=== PATIENT | male | born 1945 | race Two or more races ===

== ENCOUNTER 2017-12-10 18:53 | Inpatient (IN) | payer SELFPAY ==
[2017-12-10 19:12] LABS: ADD MAN DIFF? NO
[2017-12-10 19:17] LABS: BASO # 0.1 x10^3/uL (0.0-0.2); BASO % 1 % (0-3); EOS # 0.2 x10^3/uL (0.0-0.7); EOS % 2 % (0-3); HEMATOCRIT 42.2 % (39.0-53.0); HEMOGLOBIN 14.4 g/dL (13.0-17.5); LYMPH # 2.4 x10^3/uL (1.0-4.8); LYMPH % 22 % (24-48); MEAN CORPUSCULAR HEMOGLOBIN 29 pg (25-35); MEAN CORPUSCULAR HGB CONC 34 g/dL (31-37); MEAN CORPUSCULAR VOLUME 84 fL (79-100); MONO # 0.9 x10^3/uL (0.0-1.1); MONO % 8 % (0-9); NEUT # 7.4 x10^3uL (1.8-7.7); NEUT % 67 % (31-73); PLATELET COUNT 217 x10^3/uL (140-400); RED BLOOD COUNT 5.03 x10^6/uL (4.30-5.70); RED CELL DISTRIBUTION WIDTH 13.8 % (11.5-14.5)
[2017-12-10 19:25] LABS: ANION GAP 10 (6-14); BLOOD UREA NITROGEN 15 mg/dL (8-26); BUN/CREATININE RATIO 21 (6-20); CALCIUM 8.7 mg/dL (8.5-10.1); CARBON DIOXIDE 28 mmol/L (21-32); CHLORIDE 98 mmol/L (98-107); CREATININE 0.7 mg/dL (0.7-1.3); GFR 110.9; GLUCOSE 125 mg/dL (70-99); SODIUM 136 mmol/L (136-145)
[2017-12-10] MEDS: ONDANSETRON PF 4 MG/2 ML VIAL. IV (19:30)
[2017-12-10 19:31] LABS: ALBUMIN 3.4 g/dL (3.4-5.0); ALBUMIN/GLOBULIN RATIO 0.9 (1.0-1.7); ALK PHOS 93 U/L (46-116); ALT (SGPT) 36 U/L (16-63); AST (SGOT) 18 U/L (15-37); TOTAL BILIRUBIN 0.1 mg/dL (0.2-1.0)
[2017-12-10] MEDS: NITROGLYCERIN OINT 1 GM PACKET. TP (19:31)
[2017-12-10 19:39] LABS: TROPONINI < 0.017 ng/mL (0.000-0.055)
[2017-12-10] MEDS ORDERED: ONDANSETRON PF 4 MG/2 ML VIAL. IV (20:00)
[2017-12-11 02:34] LABS: TROPONINI < 0.017 ng/mL (0.000-0.055)
[2017-12-11] MEDS: MORPHINE SULFATE 2 MG/ML DISP.SYRIN. IV (02:49)
[2017-12-11 08:46] LABS: TROPONINI < 0.017 ng/mL (0.000-0.055)
[2017-12-11] MEDS ORDERED: hydrALAZINE 20 MG/ML VIAL. IVP (09:45)
[2017-12-11] MEDS ORDERED: DOCUSATE SODIUM 100 MG CAPSULE. PO (09:45)
[2017-12-11] MEDS ORDERED: ASPIRIN 325 MG TABLET PO (10:00)
[2017-12-11] MEDS: ACETAMINOPHEN 325 MG TABLET. PO (10:04)
[2017-12-11] MEDS: hydroCHLOROthiazide 25 MG TABLET PO (11:46)
[2017-12-11] MEDS: CLOPIDOGREL BISULFATE 75 MG TABLET PO (11:46)
[2017-12-11] MEDS: METOPROLOL TART IMMED RELEASE 25 MG TABLET. PO ×2 (11:48→20:29)
[2017-12-11] MEDS: LISINOPRIL 20 MG TABLET PO (14:12)
[2017-12-11] MEDS: amLODIPine BESYLATE 10 MG TABLET PO (14:13)
[2017-12-11] MEDS: ENOXAPARIN 40 MG/0.4 ML SYRINGE. SQ (14:13)
[2017-12-11] MEDS: traMADol 50 MG TABLET PO (20:31)
[2017-12-11] MEDS ORDERED: ENALAPRIL MALEATE 20 MG PO (21:00)
[2017-12-12 04:43] LABS: ADD MAN DIFF? NO
[2017-12-12 05:02] LABS: BASO % 0 % (0-3); EOS # 0.1 x10^3/uL (0.0-0.7); EOS % 2 % (0-3); HEMATOCRIT 40.5 % (39.0-53.0); HEMOGLOBIN 13.7 g/dL (13.0-17.5); LYMPH # 2.4 x10^3/uL (1.0-4.8); LYMPH % 26 % (24-48); MEAN CORPUSCULAR HEMOGLOBIN 28 pg (25-35); MEAN CORPUSCULAR HGB CONC 34 g/dL (31-37); MEAN CORPUSCULAR VOLUME 83 fL (79-100); MONO # 0.7 x10^3/uL (0.0-1.1); MONO % 8 % (0-9); NEUT # 5.9 x10^3uL (1.8-7.7); NEUT % 64 % (31-73); PLATELET COUNT 193 x10^3/uL (140-400); RED BLOOD COUNT 4.87 x10^6/uL (4.30-5.70); RED CELL DISTRIBUTION WIDTH 13.7 % (11.5-14.5); WHITE BLOOD COUNT 9.2 x10^3/uL (4.0-11.0)
[2017-12-12 05:45] LABS: ANION GAP 8 (6-14); BLOOD UREA NITROGEN 21 mg/dL (8-26); CALCIUM 8.9 mg/dL (8.5-10.1); CARBON DIOXIDE 30 mmol/L (21-32); CHLORIDE 100 mmol/L (98-107); CREATININE 0.7 mg/dL (0.7-1.3); GFR 110.5; GLUCOSE 110 mg/dL (70-99); POTASSIUM 4.1 mmol/L (3.5-5.1); SODIUM 138 mmol/L (136-145)
[2017-12-12] MEDS: METOPROLOL TART IMMED RELEASE 25 MG TABLET. PO ×2 (09:00→20:54)
[2017-12-12] MEDS: REGADENOSON 0.4 MG/5 ML DISP.SYRIN. IV (10:24)
[2017-12-12] MEDS: ONDANSETRON PF 4 MG/2 ML VIAL. IV (11:30)
[2017-12-12 13:25] LABS: CHOLESTEROL 216 mg/dL (0-200); HDLC 45 mg/dL (40-60); LDLC 155 mg/dL (0-100); NON-HDL CHOLESTEROL 171 mg/dL (0-129); TRIGLYCERIDES 81 mg/dL (0-150); VLDLC 16 mg/dL (0-40)
[2017-12-12 13:41] LABS: CHOLESTEROL/HDL RATIO 4.8
[2017-12-12] MEDS: CLOPIDOGREL BISULFATE 75 MG TABLET PO (14:58)
[2017-12-12] MEDS: amLODIPine BESYLATE 10 MG TABLET PO (14:58)
[2017-12-12] MEDS: hydroCHLOROthiazide 25 MG TABLET PO (14:59)
[2017-12-12] MEDS: LISINOPRIL 20 MG TABLET PO (14:59)
[2017-12-12] MEDS: ASPIRIN ENTERIC COATED 81 MG TABLET.DR. PO (14:59)
[2017-12-12] MEDS: ENOXAPARIN 40 MG/0.4 ML SYRINGE. SQ (16:20)
[2017-12-13 03:52] LABS: ADD MAN DIFF? NO
[2017-12-13 03:55] LABS: BASO % 1 % (0-3); EOS # 0.2 x10^3/uL (0.0-0.7); EOS % 2 % (0-3); HEMATOCRIT 39.5 % (39.0-53.0); HEMOGLOBIN 13.2 g/dL (13.0-17.5); LYMPH # 2.4 x10^3/uL (1.0-4.8); LYMPH % 29 % (24-48); MEAN CORPUSCULAR HEMOGLOBIN 28 pg (25-35); MEAN CORPUSCULAR HGB CONC 33 g/dL (31-37); MEAN CORPUSCULAR VOLUME 84 fL (79-100); MONO # 0.6 x10^3/uL (0.0-1.1); MONO % 8 % (0-9); NEUT # 4.9 x10^3uL (1.8-7.7); NEUT % 60 % (31-73); PLATELET COUNT 187 x10^3/uL (140-400); RED BLOOD COUNT 4.73 x10^6/uL (4.30-5.70); RED CELL DISTRIBUTION WIDTH 13.7 % (11.5-14.5); WHITE BLOOD COUNT 8.2 x10^3/uL (4.0-11.0)
[2017-12-13 04:13] LABS: ANION GAP 7 (6-14); BLOOD UREA NITROGEN 19 mg/dL (8-26); CALCIUM 8.9 mg/dL (8.5-10.1); CARBON DIOXIDE 31 mmol/L (21-32); CHLORIDE 101 mmol/L (98-107); CREATININE 0.8 mg/dL (0.7-1.3); GFR 94.8; GLUCOSE 107 mg/dL (70-99); SODIUM 139 mmol/L (136-145)
[2017-12-13] MEDS: LISINOPRIL 20 MG TABLET PO (08:44)
[2017-12-13] MEDS: CLOPIDOGREL BISULFATE 75 MG TABLET PO (08:44)
[2017-12-13] MEDS: ASPIRIN ENTERIC COATED 81 MG TABLET.DR. PO (08:44)
[2017-12-13] MEDS: hydroCHLOROthiazide 25 MG TABLET PO (08:45)
[2017-12-13] MEDS: amLODIPine BESYLATE 10 MG TABLET PO (08:45)
[2017-12-13] MEDS: METOPROLOL TART IMMED RELEASE 25 MG TABLET. PO ×2 (08:45→20:24)
[2017-12-13] MEDS: ENOXAPARIN 40 MG/0.4 ML SYRINGE. SQ (14:00)
[2017-12-13] MEDS: IV 1/2 NORMAL SALINE 1,000 ML IV (18:40)
[2017-12-13] MEDS: ACETAMINOPHEN 325 MG TABLET. PO (20:24)
[2017-12-14] MEDS: ASPIRIN ENTERIC COATED 81 MG TABLET.DR. PO (08:00)
[2017-12-14] MEDS ORDERED: LIDOCAINE 1% Multi-Dose 20 ML VIAL. (08:33)
[2017-12-14] MEDS: hydroCHLOROthiazide 25 MG TABLET PO (08:33)
[2017-12-14] MEDS ORDERED: IODIXANOL 320 MG/ML 100 ML VIAL. ×2 (08:33→10:08)
[2017-12-14] MEDS: METOPROLOL TART IMMED RELEASE 25 MG TABLET. PO ×2 (08:34→21:49)
[2017-12-14] MEDS: LISINOPRIL 20 MG TABLET PO (08:34)
[2017-12-14] MEDS: CLOPIDOGREL BISULFATE 75 MG TABLET PO (08:34)
[2017-12-14] MEDS: amLODIPine BESYLATE 10 MG TABLET PO (08:34)
[2017-12-14] MEDS: MIDAZOLAM HCL/PF 2 MG/2 ML VIAL. IV (09:15)
[2017-12-14] MEDS ORDERED: CONTRAST GIVEN MC (09:15)
[2017-12-14] MEDS: IODIXANOL 320 MG/ML 100 ML VIAL. IART (09:15)
[2017-12-14] MEDS: LIDOCAINE 2% 20 ML VIAL. IJ (09:15)
[2017-12-14] MEDS: fentaNYL PF VIAL 100 MCG/2 ML VIAL IV (09:15)
[2017-12-14] MEDS: MORPHINE SULFATE 2 MG/ML DISP.SYRIN. IV (10:39)
[2017-12-14] MEDS ORDERED: ONDANSETRON PF 4 MG/2 ML VIAL. IV (11:15)
[2017-12-14] MEDS: IV 1/2 NORMAL SALINE 1,000 ML IV (11:20)
[2017-12-14] MEDS: ENOXAPARIN 40 MG/0.4 ML SYRINGE. SQ (14:00)
[2017-12-14] MEDS: ACETAMINOPHEN 325 MG TABLET. PO (21:50)
[2017-12-15] MEDS: IV 1/2 NORMAL SALINE 1,000 ML IV (04:00)
[2017-12-15] MEDS: ASPIRIN ENTERIC COATED 81 MG TABLET.DR. PO (08:23)
[2017-12-15] MEDS: hydroCHLOROthiazide 25 MG TABLET PO (08:23)
[2017-12-15] MEDS: amLODIPine BESYLATE 10 MG TABLET PO (08:23)
[2017-12-15] MEDS: LISINOPRIL 20 MG TABLET PO (08:23)
[2017-12-15] MEDS: CLOPIDOGREL BISULFATE 75 MG TABLET PO (08:23)
[2017-12-15] MEDS: METOPROLOL TART IMMED RELEASE 25 MG TABLET. PO (08:24)
[2017-12-18] MEDS ORDERED: CHOLECALCIFEROL (VITAMIN D3) 1,000 UNIT TABLET PO (10:00)
== END 2017-12-15 18:01 | disposition home or self-care (01) | DRG 287 ==
LOC: ER 18:53 → 2 NORTH 20:52
PROC: B2111ZZ Fluoroscopy of Multiple Coronary Arteries using Low Osmolar Contrast (ICD-10-PCS; principal; 2017-12-14)
PROC: B2151ZZ Fluoroscopy of Left Heart using Low Osmolar Contrast (ICD-10-PCS; 2017-12-14)
PROC: B2181ZZ Fluoroscopy of Left Internal Mammary Bypass Graft using Low Osmolar Contrast (ICD-10-PCS; 2017-12-14)
PROC: 4A023N7 Measurement of Cardiac Sampling and Pressure, Left Heart, Percutaneous Approach (ICD-10-PCS; 2017-12-14)
DX: I25.110 Atherosclerotic heart disease of native coronary artery with unstable angina pectoris (principal); I25.5 Ischemic cardiomyopathy; E11.9 Type 2 diabetes mellitus without complications; I10 Essential (primary) hypertension; Z82.49 Family history of ischemic heart disease and other diseases of the circulatory system; Z95.1 Presence of aortocoronary bypass graft; Z98.61 Coronary angioplasty status; I25.2 Old myocardial infarction
CPT/HCPCS: 36415; 71045; 75625; 78452; 80048; 80053; 80061; 84484; 85025; 93005; 93017; 93306; 93459; 93567; 96374; 96375; 96376; 99152; 99153; 99285; 99285-25; A9500; C1769; C1771; C1892; G0269; J1644; J1650; J2250; J2270; J2405; J2785; J3010

== ENCOUNTER 2018-04-26 17:39 | Inpatient (IN) | payer SELFPAY ==
[2018-04-26 18:48] LABS: ADD MAN DIFF? NO
[2018-04-26 18:56] LABS: BASO # 0.1 x10^3/uL (0.0-0.2); BASO % 1 % (0-3); EOS # 0.2 x10^3/uL (0.0-0.7); EOS % 2 % (0-3); HEMATOCRIT 42.2 % (39.0-53.0); HEMOGLOBIN 14.2 g/dL (13.0-17.5); LYMPH # 1.6 x10^3/uL (1.0-4.8); LYMPH % 22 % (24-48); MEAN CORPUSCULAR HEMOGLOBIN 28 pg (25-35); MEAN CORPUSCULAR HGB CONC 34 g/dL (31-37); MEAN CORPUSCULAR VOLUME 84 fL (79-100); MONO # 0.7 x10^3/uL (0.0-1.1); MONO % 9 % (0-9); NEUT # 4.7 x10^3uL (1.8-7.7); NEUT % 65 % (31-73); PLATELET COUNT 246 x10^3/uL (140-400); RED BLOOD COUNT 5.05 x10^6/uL (4.30-5.70); RED CELL DISTRIBUTION WIDTH 14.2 % (11.5-14.5); WHITE BLOOD COUNT 7.2 x10^3/uL (4.0-11.0)
[2018-04-26 19:08] LABS: ANION GAP 5 (6-14); BLOOD UREA NITROGEN 19 mg/dL (8-26); BUN/CREATININE RATIO 24 (6-20); CALCIUM 9.3 mg/dL (8.5-10.1); CARBON DIOXIDE 29 mmol/L (21-32); CHLORIDE 99 mmol/L (98-107); CREATININE 0.8 mg/dL (0.7-1.3); GFR 94.8; GLUCOSE 112 mg/dL (70-99); POTASSIUM 4.2 mmol/L (3.5-5.1); SODIUM 133 mmol/L (136-145)
[2018-04-26 19:14] LABS: ALBUMIN 3.2 g/dL (3.4-5.0); ALBUMIN/GLOBULIN RATIO 0.7 (1.0-1.7); ALK PHOS 89 U/L (46-116); ALT (SGPT) 32 U/L (16-63); AST (SGOT) 14 U/L (15-37); MAGNESIUM 1.9 mg/dL (1.8-2.4); TOTAL BILIRUBIN 0.2 mg/dL (0.2-1.0); TOTAL PROTEIN 7.9 g/dL (6.4-8.2)
[2018-04-26 19:15] LABS: TROPONINI < 0.017 ng/mL (0.000-0.055)
[2018-04-26 19:21] LABS: THYROID STIM HORMONE (TSH) 2.568 uIU/mL (0.358-3.74)
[2018-04-26 19:24] LABS: NT-PRO BNP 235 pg/mL (0-124)
[2018-04-26 19:24] LABS: CKMB MASS 0.9 ng/mL (0.0-3.6); CREATINE KINASE 25 U/L (39-308)
[2018-04-26 19:40] LABS: INR 1.1 (0.8-1.1)
[2018-04-26 20:50] LABS: POC GLUCOSE 107 mg/dL (70-99)
[2018-04-26] MEDS: IV NORMAL SALINE 1000ML BAG 1,000 ML IV (21:05)
[2018-04-26 21:18] LABS: BILIRUBIN,URINE NEGATIVE (NEG); CLARITY,URINE CLEAR; COLOR,URINE YELLOW; GLUCOSE,URINE NEGATIVE (NEG); NITRITE,URINE NEGATIVE (NEG); PH,URINE 6.5; PROTEIN,URINE NEGATIVE (NEG-TRACE)
[2018-04-26 21:23] LABS: BARBITURATES NEG (NEG); BENZODIAZEPINES NEG (NEG); CANNABINOIDS NEG (NEG); COCAINE NEG (NEG); METHADONE NEG (NEG); OPIATES POS (NEG); PHENCYCLIDINE NEG (NEG)
[2018-04-26 21:24] LABS: AMPHETAMINE/METHAMPHETAMINE NEG (NEG); ETHANOL, URINE NEG (NEG)
[2018-04-26 21:29] LABS: BACTERIA,URINE 0 /HPF (0-FEW); RBC,URINE 0 /HPF (0-2); SQUAMOUS EPITHELIAL CELL,UR OCC /LPF; WBC,URINE OCC /HPF (0-4)
[2018-04-26] MEDS ORDERED: ONDANSETRON PF 4 MG/2 ML VIAL. IV (21:30)
[2018-04-26 22:24] LABS: LACTIC ACID 0.9 mmol/L (0.4-2.0)
[2018-04-26] MEDS: PIPERACILLIN/TAZOBACTAM 3.375 GM in IV NORMAL SALINE 50ML 50 ML IV (22:37)
[2018-04-27] MEDS: MORPHINE SULFATE 4 MG/ML DISP.SYRIN. IV (02:27)
[2018-04-27 04:54] LABS: ADD MAN DIFF? NO
[2018-04-27 04:58] LABS: BASO % 1 % (0-3); EOS # 0.1 x10^3/uL (0.0-0.7); EOS % 2 % (0-3); HEMOGLOBIN 12.9 g/dL (13.0-17.5); LYMPH # 1.7 x10^3/uL (1.0-4.8); LYMPH % 26 % (24-48); MEAN CORPUSCULAR HEMOGLOBIN 29 pg (25-35); MEAN CORPUSCULAR HGB CONC 34 g/dL (31-37); MEAN CORPUSCULAR VOLUME 84 fL (79-100); MONO # 0.6 x10^3/uL (0.0-1.1); MONO % 10 % (0-9); NEUT # 4.1 x10^3uL (1.8-7.7); NEUT % 62 % (31-73); PLATELET COUNT 215 x10^3/uL (140-400); RED BLOOD COUNT 4.53 x10^6/uL (4.30-5.70); WHITE BLOOD COUNT 6.6 x10^3/uL (4.0-11.0)
[2018-04-27 05:16] LABS: ANION GAP 4 (6-14); BLOOD UREA NITROGEN 17 mg/dL (8-26); CALCIUM 8.7 mg/dL (8.5-10.1); CARBON DIOXIDE 30 mmol/L (21-32); CHLORIDE 102 mmol/L (98-107); CREATININE 0.7 mg/dL (0.7-1.3); GFR 110.5; GLUCOSE 99 mg/dL (70-99); POTASSIUM 3.9 mmol/L (3.5-5.1); SODIUM 136 mmol/L (136-145)
[2018-04-27] MEDS ORDERED: PIP/TAZO PER PHARMACY MC (14:00)
[2018-04-27] MEDS ORDERED: levOFLOXacin PER PHARMACY. MC (14:00)
[2018-04-27] MEDS ORDERED: HYDROcodone/APAP 5/325MG 1 TAB TABLET PO (14:00)
[2018-04-27] MEDS: LISINOPRIL 20 MG TABLET PO (15:07)
[2018-04-27] MEDS: CHOLECALCIFEROL (VITAMIN D3) 1,000 UNIT TABLET PO (15:08)
[2018-04-27] MEDS: CYCLOBENZAPRINE 10 MG TABLET. PO ×2 (15:08→21:06)
[2018-04-27] MEDS: CLOPIDOGREL BISULFATE 75 MG TABLET PO (15:08)
[2018-04-27] MEDS: hydroCHLOROthiazide 25 MG TABLET PO (15:08)
[2018-04-27] MEDS: ASPIRIN ENTERIC COATED 81 MG TABLET.DR. PO (16:46)
[2018-04-27] MEDS: PIPERACILLIN/TAZOBACTAM 4.5 GM in IV NORMAL SALINE 100ML 100 ML IV (21:02)
[2018-04-27] MEDS: amLODIPine BESYLATE 10 MG TABLET PO (21:06)
[2018-04-27] MEDS: LACTOBACILLUS RHAMNOSUS GG 1 CAPSULE. PO (21:06)
[2018-04-27] MEDS: ENOXAPARIN 40 MG/0.4 ML SYRINGE. SQ (21:07)
[2018-04-27] MEDS: METOPROLOL TART IMMED RELEASE 25 MG TABLET. PO (21:07)
[2018-04-28 04:16] LABS: ADD MAN DIFF? NO
[2018-04-28 04:25] LABS: BASO # 0.1 x10^3/uL (0.0-0.2); BASO % 1 % (0-3); EOS # 0.1 x10^3/uL (0.0-0.7); EOS % 2 % (0-3); HEMATOCRIT 39.6 % (39.0-53.0); HEMOGLOBIN 13.4 g/dL (13.0-17.5); LYMPH # 1.7 x10^3/uL (1.0-4.8); LYMPH % 25 % (24-48); MEAN CORPUSCULAR HEMOGLOBIN 29 pg (25-35); MEAN CORPUSCULAR HGB CONC 34 g/dL (31-37); MEAN CORPUSCULAR VOLUME 84 fL (79-100); MONO # 0.6 x10^3/uL (0.0-1.1); MONO % 8 % (0-9); NEUT # 4.3 x10^3uL (1.8-7.7); NEUT % 64 % (31-73); PLATELET COUNT 220 x10^3/uL (140-400); RED BLOOD COUNT 4.69 x10^6/uL (4.30-5.70); WHITE BLOOD COUNT 6.8 x10^3/uL (4.0-11.0)
[2018-04-28 04:54] LABS: ALBUMIN 2.7 g/dL (3.4-5.0); ALBUMIN/GLOBULIN RATIO 0.6 (1.0-1.7); ALK PHOS 86 U/L (46-116); ALT (SGPT) 29 U/L (16-63); ANION GAP 7 (6-14); AST (SGOT) 13 U/L (15-37); BLOOD UREA NITROGEN 16 mg/dL (8-26); BUN/CREATININE RATIO 23 (6-20); CALCIUM 8.9 mg/dL (8.5-10.1); CARBON DIOXIDE 28 mmol/L (21-32); CHLORIDE 101 mmol/L (98-107); CREATININE 0.7 mg/dL (0.7-1.3); GFR 110.5; GLUCOSE 103 mg/dL (70-99); SODIUM 136 mmol/L (136-145); TOTAL BILIRUBIN 0.2 mg/dL (0.2-1.0)
[2018-04-28] MEDS: PIPERACILLIN/TAZOBACTAM 4.5 GM in IV NORMAL SALINE 100ML 100 ML IV ×3 (06:25→22:27)
[2018-04-28] MEDS ORDERED: ONDANSETRON ODT 4 MG TAB.RAPDIS. PO (09:00)
[2018-04-28] MEDS ORDERED: ACETAMINOPHEN 500 MG TABLET PO (09:00)
[2018-04-28] MEDS ORDERED: ONDANSETRON PF 4 MG/2 ML VIAL. IV (09:00)
[2018-04-28] MEDS: hydroCHLOROthiazide 25 MG TABLET PO (09:16)
[2018-04-28] MEDS: CLOPIDOGREL BISULFATE 75 MG TABLET PO (09:17)
[2018-04-28] MEDS: LISINOPRIL 20 MG TABLET PO (09:17)
[2018-04-28] MEDS: CYCLOBENZAPRINE 10 MG TABLET. PO ×3 (09:17→21:37)
[2018-04-28] MEDS: LACTOBACILLUS RHAMNOSUS GG 1 CAPSULE. PO ×2 (09:17→21:37)
[2018-04-28] MEDS: METOPROLOL TART IMMED RELEASE 25 MG TABLET. PO ×2 (09:17→21:37)
[2018-04-28] MEDS: CHOLECALCIFEROL (VITAMIN D3) 1,000 UNIT TABLET PO (09:18)
[2018-04-28] MEDS: amLODIPine BESYLATE 10 MG TABLET PO (09:18)
[2018-04-28] MEDS: ASPIRIN ENTERIC COATED 81 MG TABLET.DR. PO (09:18)
[2018-04-28 11:49] LABS: VITAMIN-B12 414 pg/mL (247-911)
[2018-04-28] MEDS: ENOXAPARIN 40 MG/0.4 ML SYRINGE. SQ (21:36)
[2018-04-28] MEDS: SIMVASTATIN 10 MG TABLET PO (21:37)
[2018-04-29] MEDS: PIPERACILLIN/TAZOBACTAM 4.5 GM in IV NORMAL SALINE 100ML 100 ML IV ×3 (05:57→21:22)
[2018-04-29] MEDS ORDERED: CONTRAST GIVEN. MC (06:30)
[2018-04-29] MEDS: IOHEXOL 300 MG/ML 100ML VIAL. IV (07:00)
[2018-04-29] MEDS: amLODIPine BESYLATE 10 MG TABLET PO (09:03)
[2018-04-29] MEDS: LACTOBACILLUS RHAMNOSUS GG 1 CAPSULE. PO ×2 (09:03→21:22)
[2018-04-29] MEDS: CLOPIDOGREL BISULFATE 75 MG TABLET PO (09:03)
[2018-04-29] MEDS: ASPIRIN ENTERIC COATED 81 MG TABLET.DR. PO (09:04)
[2018-04-29] MEDS: METOPROLOL TART IMMED RELEASE 25 MG TABLET. PO ×2 (09:04→21:21)
[2018-04-29] MEDS: hydroCHLOROthiazide 25 MG TABLET PO (09:04)
[2018-04-29] MEDS: CHOLECALCIFEROL (VITAMIN D3) 1,000 UNIT TABLET PO (09:04)
[2018-04-29] MEDS: LISINOPRIL 20 MG TABLET PO (09:04)
[2018-04-29] MEDS: CYCLOBENZAPRINE 10 MG TABLET. PO ×3 (09:04→21:21)
[2018-04-29] MEDS: SIMVASTATIN 10 MG TABLET PO (21:21)
[2018-04-29] MEDS: ENOXAPARIN 40 MG/0.4 ML SYRINGE. SQ (21:23)
[2018-04-30] MEDS: PIPERACILLIN/TAZOBACTAM 4.5 GM in IV NORMAL SALINE 100ML 100 ML IV (06:13)
[2018-04-30] MEDS: amLODIPine BESYLATE 10 MG TABLET PO (09:00)
[2018-04-30] MEDS: CLOPIDOGREL BISULFATE 75 MG TABLET PO (09:28)
[2018-04-30] MEDS: CHOLECALCIFEROL (VITAMIN D3) 1,000 UNIT TABLET PO (09:28)
[2018-04-30] MEDS: LISINOPRIL 20 MG TABLET PO (09:29)
[2018-04-30] MEDS: CYCLOBENZAPRINE 10 MG TABLET. PO (09:29)
[2018-04-30] MEDS: LACTOBACILLUS RHAMNOSUS GG 1 CAPSULE. PO (09:29)
[2018-04-30] MEDS: ASPIRIN ENTERIC COATED 81 MG TABLET.DR. PO (09:29)
[2018-04-30] MEDS: METOPROLOL TART IMMED RELEASE 25 MG TABLET. PO (09:34)
[2018-04-30] MEDS: hydroCHLOROthiazide 25 MG TABLET PO (09:35)
== END 2018-04-30 11:43 | disposition home or self-care (01) | DRG 193 ==
LOC: 6 SOUTH 22:50 → ER 17:39 → 6 SOUTH 20:18
PROVIDERS: Internal Medicine
DX: J18.1 Lobar pneumonia, unspecified organism (principal); G93.40 Encephalopathy, unspecified; J98.11 Atelectasis; E11.9 Type 2 diabetes mellitus without complications; E78.00 Pure hypercholesterolemia, unspecified; E78.5 Hyperlipidemia, unspecified; G25.2 Other specified forms of tremor; I10 Essential (primary) hypertension; I65.22 Occlusion and stenosis of left carotid artery; M19.90 Unspecified osteoarthritis, unspecified site; K21.9 Gastro-esophageal reflux disease without esophagitis; I25.10 Atherosclerotic heart disease of native coronary artery without angina pectoris; I25.2 Old myocardial infarction; Z79.02 Long term (current) use of antithrombotics/antiplatelets; Z79.82 Long term (current) use of aspirin; Z79.899 Other long term (current) drug therapy; Z81.8 Family history of other mental and behavioral disorders; Z82.0 Family history of epilepsy and other diseases of the nervous system; Z82.49 Family history of ischemic heart disease and other diseases of the circulatory system; Z82.5 Family history of asthma and other chronic lower respiratory diseases; Z86.73 Personal history of transient ischemic attack (TIA), and cerebral infarction without residual deficits; Z95.5 Presence of coronary angioplasty implant and graft; Z95.1 Presence of aortocoronary bypass graft; Z83.3 Family history of diabetes mellitus
CPT/HCPCS: 36415; 70450; 70498; 70551; 71045; 71046; 80048; 80053; 80307; 81001; 82306; 82553; 82607; 82962; 83605; 83735; 83880; 84443; 84484; 85025; 85610; 87040; 93005; 95816; 96361; 96374; 97161-GP; 97165-GO; 99285; 99285-25; J1650; J1956; J2270; J2543; J7030; Q9967

== ENCOUNTER 2019-02-01 23:59 | Emergency (ER) | payer SELFPAY ==
[~2019-02-01] VITALS: Ht 177.8 cm; Wt 92.5 kg
[~2019-02-01 23:59] MED LIST: AMLO5TAB10 PO; ASPI325T8 PO; CHOL10003 PO; CLOP75TA57 PO; CYCL10TA2 PO; CYCL5TAB PO; ENAL20TA PO; HYDR-2761 PO; LEVO500T59 PO; LEVO750T31 PO; LISI1TAB7 PO; METO25TA4 PO; NAPR220C4 PO
[2019-02-02 00:46] LABS: BASO # 0.1 x10^3/uL (0.0-0.2); BASO % 1 % (0-3); EOS # 0.3 x10^3/uL (0.0-0.7); EOS % 3 % (0-3); LYMPH # 2.4 x10^3/uL (1.0-4.8); LYMPH % 28 % (24-48); MEAN CORPUSCULAR HEMOGLOBIN 28 pg (25-35); MEAN CORPUSCULAR HGB CONC 33 g/dL (31-37); MEAN CORPUSCULAR VOLUME 84 fL (79-100); MONO # 0.9 x10^3/uL (0.0-1.1); MONO % 11 % (0-9); NEUT # 4.9 x10^3uL (1.8-7.7); NEUT % 57 % (31-73); PLATELET COUNT 221 x10^3/uL (140-400); RED BLOOD COUNT 4.66 x10^6/uL (4.30-5.70); RED CELL DISTRIBUTION WIDTH 13.4 % (11.5-14.5); WHITE BLOOD COUNT 8.5 x10^3/uL (4.0-11.0)
[2019-02-02 00:55] LABS: CALCIUM 9.2 mg/dL (8.5-10.1); CREATININE 0.7 mg/dL (0.7-1.3); GFR 110.2; POTASSIUM 3.8 mmol/L (3.5-5.1)
[2019-02-02 01:03] LABS: ALBUMIN 3.4 g/dL (3.4-5.0); ALBUMIN/GLOBULIN RATIO 0.8 (1.0-1.7); TOTAL BILIRUBIN 0.2 mg/dL (0.2-1.0); TOTAL PROTEIN 7.5 g/dL (6.4-8.2)
--- NOTE | 2019-02-02 01:13 | PHYS DOC ---
Past Medical History Past Medical History: CAD, High Cholesterol, Hypertension, [place], Seizure Past Surgical History: Coronary Bypass Surgery, Other Additional Past Surgical Histo: cardiac cath, right hand Alcohol Use: None Drug Use: None Adult General Chief Complaint Chief Complaint: SHORTNESS OF BREATH HPI HPI Patient is a 73 year old male with past medical history of COPD who presents to the ED tonight with shortness of breath. His symptoms began one month ago and were accompanied with productive cough and sore throat. His symptoms have worsened since the onset. Denies history of the same. Admits receiving the flu vaccine in 2018. Laying on his back makes his symptoms worse. His son was present for the interview and interpreted for the patient. Review of Systems Review of Systems Constitutional: Admits subjective fever. Denies chills. HENT: Denies nasal congestion or sore throat. Respiratory: Admits productive cough and shortness of breath. Cardiovascular: Denies chest pain and palpitations. GI: Denies abdominal pain, nausea, vomiting, bloody stools or diarrhea. Musculoskeletal: Denies back pain or joint pain[] Integument: Denies rash or skin lesions [] Neurologic: Denies headache, focal weakness or sensory changes [] Endocrine: Denies polyuria or polydipsia [] Complete systems were reviewed and found to be within normal limits, except as documented in this note. Current Medications Current Medications Current Medications Medications (Trade) Dose Ordered Sig/Mike Start Time Stop Time Status Last Admin Dose Admin Albuterol/ Ipratropium (Duoneb) 3 ml 1X ONCE 02/02/19 01:15 02/02/19 01:16 DC 02/02/19 01:20 3 ML Allergies Allergies Allergies Coded Allergies Type Severity Reaction Last Updated Verified No Known Drug Allergies 05/22/14 No Physical Exam Physical Exam Constitutional: Well developed, well nourished, uncomfortable-appearing, non- toxic appearance. HENT: Normocephalic, atraumatic, bilateral external ears normal, oropharynx moist, no oral exudates, nose normal. Eyes: PERRL, EOMI, conjunctiva normal, no discharge. Neck: Normal range of motion, no tenderness, supple, no stridor. Cardiovascular: Heart rate regular rhythm, no murmur, no S3. Lungs & Thorax: Bilateral breath sounds clear to auscultation. Abdomen: Bowel sounds normal, soft, no tenderness, no masses, no pulsatile masses. Skin: Warm, dry, no erythema, no rash. Extremities: No tenderness, no cyanosis, no clubbing, ROM intact, +1 edema in lower extremities b/l. Neurologic: Alert and oriented X 3, normal motor function, normal sensory function, no focal deficits noted. Psychologic: Affect normal, judgement normal, mood normal. Current Patient Data Vital Signs Vital Signs Date Time Temp Pulse Resp B/P (MAP) Pulse Ox O2 Delivery O2 Flow Rate FiO2 02/02/19 02:03 68 20 134/65 (88) 93 02/02/19 00:25 98.8 Room Air 98.8 Lab Values Laboratory Tests Test 02/02/19 00:40 02/02/19 00:58 White Blood Count 8.5 x10^3/uL (4.0-11.0) Red Blood Count 4.66 x10^6/uL (4.30-5.70) Hemoglobin 13.0 g/dL (13.0-17.5) Hematocrit 39.0 % (39.0-53.0) Mean Corpuscular Volume 84 fL (79-100) Mean Corpuscular Hemoglobin 28 pg (25-35) Mean Corpuscular Hemoglobin Concent 33 g/dL (31-37) Red Cell Distribution Width 13.4 % (11.5-14.5) Platelet Count 221 x10^3/uL (140-400) Neutrophils (%) (Auto) 57 % (31-73) Lymphocytes (%) (Auto) 28 % (24-48) Monocytes (%) (Auto) 11 % (0-9) H Eosinophils (%) (Auto) 3 % (0-3) Basophils (%) (Auto) 1 % (0-3) Neutrophils # (Auto) 4.9 x10^3uL (1.8-7.7) Lymphocytes # (Auto) 2.4 x10^3/uL (1.0-4.8) Monocytes # (Auto) 0.9 x10^3/uL (0.0-1.1) Eosinophils # (Auto) 0.3 x10^3/uL (0.0-0.7) Basophils # (Auto) 0.1 x10^3/uL (0.0-0.2) D-Dimer (Jaci) 0.28 ug/mlFEU (0.00-0.50) Sodium Level 138 mmol/L (136-145) Potassium Level 3.8 mmol/L (3.5-5.1) Chloride Level 101 mmol/L (98-107) Carbon Dioxide Level 30 mmol/L (21-32) Anion Gap 7 (6-14) Blood Urea Nitrogen 12 mg/dL (8-26) Creatinine 0.7 mg/dL (0.7-1.3) Estimated GFR (Cockcroft-Gault) 110.2 BUN/Creatinine Ratio 17 (6-20) Glucose Level 141 mg/dL (70-99) H Calcium Level 9.2 mg/dL (8.5-10.1) Magnesium Level 2.0 mg/dL (1.8-2.4) Total Bilirubin 0.2 mg/dL (0.2-1.0) Aspartate Amino Transferase (AST) 14 U/L (15-37) L Alanine Aminotransferase (ALT) 21 U/L (16-63) Alkaline Phosphatase 82 U/L (46-116) Creatine Kinase 83 U/L (39-308) Creatine Kinase MB (Mass) 1.6 ng/mL (0.0-3.6) Creatine Kinase MB Relative Index 1.9 % (0-4) Troponin I Quantitative < 0.017 ng/mL (0.000-0.055) AK-Wgq-K-Type Natriuretic Peptide 263 pg/mL (0-124) H Total Protein 7.5 g/dL (6.4-8.2) Albumin 3.4 g/dL (3.4-5.0) Albumin/Globulin Ratio 0.8 (1.0-1.7) L Influenza Type A Antigen Negative (NEGATIVE) Influenza Type B Antigen Negative (NEGATIVE) Laboratory Tests 02/02/19 00:40 Laboratory Tests 02/02/19 00:40 EKG EKG @0032 NSR at 68bpm, NO ST elevation, Q wave in III, nonspecific t wave inversion V4-V6 Radiology/Procedures Radiology/Procedures [] Course & Med Decision Making Course & Med Decision Making Pertinent Labs and Imaging studies reviewed. (See chart for details) Patient is a 73 year old male with past medical history of COPD who presents to the ED tonight with shortness of breath. A ECG was ordered which revealed no acute cardiac cause for his symptoms. A chest x-ray was ordered which revealed no acute cardiopulmonary process. CBC did not reveal an elevated white count. He was treated with DuoNeb's in the ED with symptomatic relief. Given his history of COPD and bronchitis, he was offered the choice of being admitted for care overnight, but decided to go home as he felt better after the treatment. He will be discharged home with steroids and Z-Dg to empirically treat pneumonia and help with inflammation. Dragon Disclaimer Dragon Disclaimer This electronic medical record was generated, in whole or in part, using a voice recognition dictation system. Departure Departure Impression: Primary Impression: Bronchitis Disposition: HOME, SELF-CARE Condition: IMPROVED Referrals: NO PCP (PCP) Patient Instructions: Bronchitis, Chpt-la-Nmtc Scripts Azithromycin (ZITHROMAX) 250 Mg Tablet 1 PKG PO UD, #6 TAB Take 2 tablets on day 1 and then 1 tablet each day for the next 4 days as directed Prov: HEIKE LAW DO 02/02/19 Prednisone (PREDNISONE) 20 Mg Tablet 2 TAB PO DAILY, #8 TAB Prov: HEIKE LAW DO 02/02/19 HEIKE LAW DO Feb 02, 2019 01:13
[2019-02-02] MEDS ORDERED: IPRATRPIUM/ALBUTEROL 0.5/2.5MG 3 ML NEBU. NEB ONE (01:15)
[2019-02-02 01:34] LABS: INFLUENZA A PATIENT NEGATIVE (NEGATIVE); INFLUENZA B PATIENT NEGATIVE (NEGATIVE)
[2019-02-02 02:03] VITALS: BP 134/65
[2019-02-02] MEDS ORDERED: PRED20TA PO (02:06)
[2019-02-02] MEDS ORDERED: AZIT250T PO (02:06)
--- NOTE | 2019-02-02 04:26 | RAD ---
AP portable chest radiograph 02/02/2019 Clinical History: Cough and shortness of breath. An AP erect portable digital radiograph of the chest was obtained. Comparison study is dated 04/28/2018. The patient is post CABG procedure. The cardiac silhouette is mildly enlarged. The thoracic aorta is mildly tortuous. No acute pulmonary infiltrate is seen. No pleural effusion or pneumothorax is noted. Degenerative changes are seen involving the thoracic spine and both shoulders. Impression: No acute abnormality is seen. Electronically signed by: Blas Valdez MD (02/02/2019 4:23 AM) [id number]
--- NOTE | 2019-02-02 05:46 | EKG ---
[facility] [address] [place] [address] Test Date: 2019-02-02 Test Time: 00:32:24 Pat Name: ONEL ARREDONDO Department: Room: Gender: Male Outgoing Inspector: : 1945 Requested By: HEIKE LAW Order Number: [id number] Reading MD: Satnam Mcnally MD Measurements Intervals [place] Rate: 68 P: 53 CT: 178 QRS: 26 QRSD: 98 T: -159 QT: 344 QTc: 369 Interpretive Statements SINUS RHYTHM NON-SPECIFIC ST/T CHANGES Electronically Signed On 02-05-2019 14:12:41 CDT by Satnam Mcnally MD
[2019-02-10] MEDS ORDERED: CELE100C PO (10:27)
[2019-02-10] MEDS ORDERED: guaiFENesin/CODEINE 100mg/10mg PO (10:27)
[2019-02-10] MEDS ORDERED: CYCL10TA2 PO (10:27)
[2019-02-10] MEDS ORDERED: LACT1CAP19 PO (10:27)
[2019-02-10] MEDS ORDERED: PRED50TA PO (10:27)
== END 2019-02-02 02:34 | disposition home or self-care (01) ==
LOC: ER 23:59
DX: J44.9 Chronic obstructive pulmonary disease, unspecified (principal); R60.0 Localized edema; E78.00 Pure hypercholesterolemia, unspecified; I25.10 Atherosclerotic heart disease of native coronary artery without angina pectoris; I10 Essential (primary) hypertension; I25.2 Old myocardial infarction; Z95.1 Presence of aortocoronary bypass graft
CPT/HCPCS: 36415; 71045; 80053; 82553; 83735; 83880; 84484; 85025; 85379; 87804; 93005; 94640; 99284; J7620

== ENCOUNTER 2019-02-08 09:25 | Inpatient (IN) | payer SELFPAY ==
[~2019-02-08] VITALS: Ht 172.7 cm; Wt 94.3 kg
[~2019-02-08 09:25] MED LIST changes: +AZIT250T PO; +PRED20TA PO
[2019-02-08] MEDS ORDERED: MORPHINE SULFATE 2 MG/ML VIAL. IV/SQ PRN (10:00)
--- NOTE | 2019-02-08 10:07 | PHYS DOC ---
Past Medical History Past Medical History: CAD, High Cholesterol, Hypertension, [place], Seizure Past Surgical History: Coronary Bypass Surgery, Other Additional Past Surgical Histo: cardiac cath, right hand,cabg 2006, Alcohol Use: None Drug Use: None Adult General Chief Complaint Chief Complaint: SHORTNESS OF BREATH HPI HPI Patient is a 73 year old Armenian-speaking male with history of AR-open heart surgery, hypertension, high cholesterol, documented history of COPD, who presents to the ED today complaining of shortness of breath, his whole body hurting, symptoms began this morning. Patient is also complaining of a cough for almost a month. Denies any fever. Patient is a very poor historian, interpreter deaf line is being used for Armenian Review of Systems Review of Systems Constitutional: Reports body aches. Denies fever or chills [] Eyes: Denies change in visual acuity, redness, or eye pain [] HENT: Denies nasal congestion or sore throat [] Respiratory: Reports cough and shortness of breath [] Cardiovascular: No additional information not addressed in HPI [] GI: Denies abdominal pain, nausea, vomiting, bloody stools or diarrhea [] : Denies dysuria or hematuria [] Musculoskeletal: Denies back pain or joint pain [] Integument: Denies rash or skin lesions [] Neurologic: Denies headache, focal weakness or sensory changes [] All other systems were reviewed and found to be within normal limits, except as documented in this note. Current Medications Current Medications Current Medications Medications (Trade) Dose Ordered Sig/Mike Start Time Stop Time Status Last Admin Dose Admin Acetaminophen (Tylenol) 650 mg PRN Q4HRS PRN 02/08/19 11:30 Al Hydroxide/Mg Hydroxide (Mylanta Plus Xs) 30 ml PRN DAILY PRN 02/08/19 11:30 Albuterol Sulfate (Ventolin Neb Soln) 2.5 mg PRN Q4HRS PRN 02/08/19 11:30 Albuterol/ Ipratropium (Duoneb) 3 ml 1X ONCE 02/08/19 10:30 02/08/19 10:31 DC 02/08/19 11:08 3 ML Aspirin (Donte Aspirin) 325 mg 1X ONCE 02/08/19 10:30 02/08/19 10:31 DC 02/08/19 10:29 325 MG Azithromycin 250 ml @ 250 mls/hr 1X ONCE 02/08/19 11:00 02/08/19 11:59 DC 02/08/19 11:52 250 MLS/HR Ceftriaxone Sodium (Rocephin) 1 gm 1X ONCE 02/08/19 10:45 02/08/19 10:46 DC 02/08/19 11:47 1 GM Docusate Sodium (Colace) 100 mg PRN BID PRN 02/08/19 11:30 Guaifenesin (Robitussin) 200 mg PRN Q4HRS PRN 02/08/19 11:30 Lorazepam (Ativan) 0.5 mg PRN Q4HRS PRN 02/08/19 11:30 Methylprednisolone Sodium Succinate (SOLU-Medrol 125MG VIAL) 125 mg 1X ONCE 02/08/19 10:30 02/08/19 10:31 DC 02/08/19 10:30 125 MG Morphine Sulfate (Morphine Sulfate) 2 mg PRN Q15MIN PRN 02/08/19 10:00 02/09/19 09:59 Cancel Ondansetron HCl (Zofran) 4 mg PRN Q4HRS PRN 02/08/19 11:30 Allergies Allergies Allergies Coded Allergies Type Severity Reaction Last Updated Verified No Known Drug Allergies 05/22/14 No Physical Exam Physical Exam Constitutional: Well developed, well nourished, no acute distress, non-toxic appearance. [] HENT: Normocephalic, atraumatic, bilateral external ears normal, oropharynx moist, no oral exudates, nose normal. [] Eyes: PERRLA, EOMI, conjunctiva normal, no discharge. [] Neck: Normal range of motion, no tenderness, supple, no stridor. [] Cardiovascular: Old healed surgical incision noted midline chest consistent with open heart surgery. Heart rate regular rhythm, no murmur [] Lungs & Thorax: Patient is short of air, coarse lung sounds. Patient is actively coughing in the ED. Abdomen: Bowel sounds normal, soft, no tenderness, no masses, no pulsatile masses. [] Skin: Warm, dry, no erythema, no rash. [] Back: No tenderness, no CVA tenderness. [] Extremities: No tenderness, no cyanosis, no clubbing, ROM intact, no edema. [] Neurologic: Alert and oriented X 3, normal motor function, normal sensory function, no focal deficits noted. [] Psychologic: Affect normal, judgement normal, mood normal. [] Current Patient Data Vital Signs Vital Signs Date Time Temp Pulse Resp B/P (MAP) Pulse Ox O2 Delivery O2 Flow Rate FiO2 02/08/19 11:10 97 Room Air 02/08/19 09:40 98.0 80 20 149/67 (94) 98.0 Lab Values Laboratory Tests Test 02/08/19 10:05 White Blood Count 18.8 x10^3/uL (4.0-11.0) H Red Blood Count 4.81 x10^6/uL (4.30-5.70) Hemoglobin 13.6 g/dL (13.0-17.5) Hematocrit 40.1 % (39.0-53.0) Mean Corpuscular Volume 84 fL (79-100) Mean Corpuscular Hemoglobin 28 pg (25-35) Mean Corpuscular Hemoglobin Concent 34 g/dL (31-37) Red Cell Distribution Width 13.6 % (11.5-14.5) Platelet Count 259 x10^3/uL (140-400) Neutrophils (%) (Auto) 83 % (31-73) H Lymphocytes (%) (Auto) 9 % (24-48) L Monocytes (%) (Auto) 8 % (0-9) Eosinophils (%) (Auto) 0 % (0-3) Basophils (%) (Auto) 0 % (0-3) Neutrophils # (Auto) 15.6 x10^3uL (1.8-7.7) H Lymphocytes # (Auto) 1.7 x10^3/uL (1.0-4.8) Monocytes # (Auto) 1.4 x10^3/uL (0.0-1.1) H Eosinophils # (Auto) 0.0 x10^3/uL (0.0-0.7) Basophils # (Auto) 0.1 x10^3/uL (0.0-0.2) Segmented Neutrophils % 84 % (35-66) H Band Neutrophils % 3 % (0-9) Lymphocytes % 7 % (24-48) L Monocytes % 5 % (0-10) Basophils % 1 % (0-3) Dohle Bodies Present Platelet Estimate Adequate (ADEQUATE) Large Platelets Few Sodium Level 138 mmol/L (136-145) Potassium Level 3.8 mmol/L (3.5-5.1) Chloride Level 100 mmol/L (98-107) Carbon Dioxide Level 26 mmol/L (21-32) Anion Gap 12 (6-14) Blood Urea Nitrogen 15 mg/dL (8-26) Creatinine 0.8 mg/dL (0.7-1.3) Estimated GFR (Cockcroft-Gault) 94.5 BUN/Creatinine Ratio 19 (6-20) Glucose Level 125 mg/dL (70-99) H Lactic Acid Level 1.4 mmol/L (0.4-2.0) Calcium Level 8.4 mg/dL (8.5-10.1) L Magnesium Level 1.6 mg/dL (1.8-2.4) L Total Bilirubin 0.6 mg/dL (0.2-1.0) Aspartate Amino Transferase (AST) 13 U/L (15-37) L Alanine Aminotransferase (ALT) 25 U/L (16-63) Alkaline Phosphatase 74 U/L (46-116) Creatine Kinase 92 U/L (39-308) Creatine Kinase MB (Mass) 2.0 ng/mL (0.0-3.6) Creatine Kinase MB Relative Index 2.2 % (0-4) Troponin I Quantitative 0.098 ng/mL (0.000-0.055) XJ-Rqo-R-Type Natriuretic Peptide 574 pg/mL (0-124) H Total Protein 7.5 g/dL (6.4-8.2) Albumin 3.5 g/dL (3.4-5.0) Albumin/Globulin Ratio 0.9 (1.0-1.7) L Lipase 136 U/L (73-393) Thyroid Stimulating Hormone (TSH) 2.143 uIU/mL (0.358-3.74) Laboratory Tests 02/08/19 10:05 Laboratory Tests 02/08/19 10:05 EKG EKG 0945Interpreted by Dr. Eddy sinus rhythm heart rate 92 no STEMI[] Radiology/Procedures Radiology/Procedures []PROCEDURE: PORTABLE CHEST 1V PORTABLE CHEST 1V History: cough Comparison: February 02, 2019 Findings: AP portable view of the chest is submitted. There has been a median sternotomy. Cardiac silhouette is stable. There is no pneumothorax or significant pleural fluid. There is some patchy increased airspace and reticular opacity left lung base, mild reticular opacity right lung base. Impression: 1. There is patchy reticular and airspace opacity left lung base and mild reticular opacity of the right lung base, may be due to mild patchy infiltrates/atelectasis. Electronically signed by: Chloé Gamino MD (02/08/2019 10:32 AM) [email or web address] DICTATED and SIGNED BY: CHLOÉ GAMINO MD DATE: 02/08/19 1032 Course & Med Decision Making Course & Med Decision Making Pertinent Labs and Imaging studies reviewed. (See chart for details) This is a 73-year-old male patient presenting to the ED today complaining of shortness of breath that began this morning with body aches. Also complaining of a cough for 1 month. CBC with a WBC of 18.8 and a left shift, CMP would not acute findings, chest x-ray noted for possible right lower lobe pneumonia. Vitals on arrival temperature 98, respiration 20 room air, O2 sats 97% on 2 L of oxygen blood pressure 149/67, heart rate 80. Troponin was 0.098. Patient has no complaints of chest pain. Spoke to [facility] cardiology RECORDS MANAGEMENT ENGINEER who will f/u with patient. Patient was already given aspirin on arrival to the ED. Lactic is normal. Blood cultures were obtained. Patient was started on azithromycin and Rocephin. Consulted with Dr. Edwards who accepted patient for admission Dragon Disclaimer Dragon Disclaimer This electronic medical record was generated, in whole or in part, using a voice recognition dictation system. Departure Departure Impression: Primary Impression: Right lower lobe pneumonia Additional Impressions: NSTEMI (non-ST elevated myocardial infarction) Shortness of breath Leukocytosis Disposition: ADMITTED INPATIENT Condition: STABLE Referrals: NO PCP (PCP) Problem Qualifiers Primary Impression: Right lower lobe pneumonia Pneumonia type: due to unspecified organism Qualified Codes: J18.1 - Lobar pneumonia, unspecified organism Additional Impressions: Leukocytosis Leukocytosis type: unspecified Qualified Codes: D72.829 - Elevated white blood cell count, unspecified ERWIN CASTLE COMPUTING TUTOR Feb 08, 2019 10:07
[2019-02-08 10:30] LABS: BASO # 0.1 x10^3/uL (0.0-0.2); BASO % 0 % (0-3); EOS % 0 % (0-3); HEMATOCRIT 40.1 % (39.0-53.0); HEMOGLOBIN 13.6 g/dL (13.0-17.5); LYMPH # 1.7 x10^3/uL (1.0-4.8); LYMPH % 9 % (24-48); MEAN CORPUSCULAR HEMOGLOBIN 28 pg (25-35); MEAN CORPUSCULAR HGB CONC 34 g/dL (31-37); MEAN CORPUSCULAR VOLUME 84 fL (79-100); MONO # 1.4 x10^3/uL (0.0-1.1); MONO % 8 % (0-9); NEUT # 15.6 x10^3uL (1.8-7.7); NEUT % 83 % (31-73); PLATELET COUNT 259 x10^3/uL (140-400); RED BLOOD COUNT 4.81 x10^6/uL (4.30-5.70); RED CELL DISTRIBUTION WIDTH 13.6 % (11.5-14.5); WHITE BLOOD COUNT 18.8 x10^3/uL (4.0-11.0)
[2019-02-08] MEDS ORDERED: methylPREDNISolone SOD SUCC PF 125 MG/2 ML VIAL. IV ONE (10:30)
[2019-02-08] MEDS ORDERED: IPRATRPIUM/ALBUTEROL 0.5/2.5MG 3 ML NEBU. NEB ONE (10:30)
[2019-02-08] MEDS ORDERED: ASPIRIN 325 MG TABLET PO ONE (10:30)
--- NOTE | 2019-02-08 10:36 | RAD ---
PORTABLE CHEST 1V History: cough Comparison: February 02, 2019 Findings: AP portable view of the chest is submitted. There has been a median sternotomy. Cardiac silhouette is stable. There is no pneumothorax or significant pleural fluid. There is some patchy increased airspace and reticular opacity left lung base, mild reticular opacity right lung base. Impression: 1. There is patchy reticular and airspace opacity left lung base and mild reticular opacity of the right lung base, may be due to mild patchy infiltrates/atelectasis. Electronically signed by: Pablo Pat MD (02/08/2019 10:32 AM) [email or web address]
[2019-02-08 10:42] LABS: CALCIUM 8.4 mg/dL (8.5-10.1); CREATININE 0.8 mg/dL (0.7-1.3); GFR 94.5; POTASSIUM 3.8 mmol/L (3.5-5.1)
[2019-02-08] MEDS ORDERED: cefTRIAXone IV Push 1 GM VIAL. IVP ONE (10:45)
[2019-02-08 10:48] LABS: ALBUMIN 3.5 g/dL (3.4-5.0); ALBUMIN/GLOBULIN RATIO 0.9 (1.0-1.7); MAGNESIUM 1.6 mg/dL (1.8-2.4); TOTAL BILIRUBIN 0.6 mg/dL (0.2-1.0); TOTAL PROTEIN 7.5 g/dL (6.4-8.2)
[2019-02-08] MEDS ORDERED: AZITHRMYCN 500MG IVPB FOR OMNI 250 ML IV ONE (11:00)
[2019-02-08] MEDS: IPRATRPIUM/ALBUTEROL 0.5/2.5MG 3 ML NEBU. NEB SCH ×4 (11:10→23:47)
[2019-02-08 11:24] LABS: % BANDS 3 % (0-9); % BASOS 1 % (0-3); % LYMPHS 7 % (24-48); % MONOS 5 % (0-10); % SEGS 84 % (35-66); PLT ESTIMATE ADEQUATE (ADEQUATE)
[2019-02-08] MEDS ORDERED: ACETAMINOPHEN 325 MG TABLET. PO PRN ×2 (11:30→12:00)
[2019-02-08] MEDS ORDERED: ONDANSETRON PF 4 MG/2 ML VIAL. IV PRN ×2 (11:30→12:00)
[2019-02-08] MEDS ORDERED: ALBUTEROL SULFATE 2.5 MG/3 ML NEBU. NEB PRN (11:30)
[2019-02-08] MEDS ORDERED: MAG HYDROX/ALUMINUM HYD/SIMETH 30 ML ORAL.SUSP PO PRN (11:30)
[2019-02-08] MEDS ORDERED: DOCUSATE SODIUM 100 MG CAPSULE. PO PRN (11:30)
[2019-02-08] MEDS ORDERED: LORazepam 0.5 MG TABLET PO PRN (11:30)
[2019-02-08] MEDS ORDERED: IPRATRPIUM/ALBUTEROL 0.5/2.5MG 3 ML NEBU. NEB SCH (12:00)
[2019-02-08] MEDS ORDERED: NITROGLYCERIN SUBLINGUAL 0.4 MG BOTTLE OF 25. SL PRN ×2 (12:00→15:00)
[2019-02-08] MEDS ORDERED: MORPHINE SULFATE 4 MG/ML VIAL. IV PRN (12:00)
--- NOTE | 2019-02-08 12:13 | PDOC2 ---
CARDIAC CONSULT DATE OF CONSULT Date of Consult DATE: 02/08/19 TIME: 12:07 REASON FOR CONSULT Reason for Consult: Elevated troponin REFERRING PHYSICIAN Referring Physician: Jaida Jason APRN SOURCE Source: Chart review, Patient HISTORY OF PRESENT ILLNESS HISTORY OF PRESENT ILLNESS This is a 73 yo male who presented secondary shortness of breath, cough, and congestion. Patient has been experiencing persistent cough and shortness of breath for the last couple of weeks. Was seen in the ED last week and was treated for bronchitis. Was discharge home with azithromycin nand steroids. Has had no improvement with treatment. Was at PCP office today due to ongoing symptoms and worsening cough, was noted to be short of breath and hypoxic; EMS was called. Patient reports cough productive of white sputum. Has had some mild fevers. C/o chest pain associated with cough ad is short of breath with minimal exertion. No dizziness, palpitations, or LE edema. Has a history of CHF, CAD s/p remote CABG and subsequent stent last year, hypertension, hyperlipidemia, COPD, and DM. Followed previously with Dr. Romo. PAST MEDICAL HISTORY Cardiovascular: CAD, CHF, HTN, LA, Hyperlipidemia Pulmonary: COPD, Pneumonia CENTRAL NERVOUS SYSTEM: CVA, Other GI: No pertinent hx Heme/Onc: No pertinent hx Hepatobiliary: No pertinent hx Psych: No pertinent hx Musculoskeletal: Osteoarthritis Rheumatologic: No pertinent hx Infectious disease: No pertinent hx ENT: No pertinent hx Renal/: Benign prostatic enlarg. Endocrine: Diabetes Dermatology: No pertinent hx PAST SURGICAL HISTORY Past Surgical History: CABG, Cataract Removal FAMILY HISTORY Family History: Coronary Artery Disease, Hypertension SOCIAL HISTORY Smoke: Quit (in the 90's ) ALCOHOL: none Drugs: None Lives: with Family CURRENT MEDICATIONS CURRENT MEDICATIONS Current Medications Medications (Trade) Dose Ordered Sig/Mike Route PRN Reason Start Time Stop Time Status Last Admin Dose Admin Albuterol/ Ipratropium (Duoneb) 3 ml 1X ONCE NEB 02/08/19 10:30 02/08/19 10:31 DC 02/08/19 11:08 Aspirin (Donte Aspirin) 325 mg 1X ONCE PO 02/08/19 10:30 02/08/19 10:31 DC 02/08/19 10:29 Methylprednisolone Sodium Succinate (SOLU-Medrol 125MG VIAL) 125 mg 1X ONCE IV 02/08/19 10:30 02/08/19 10:31 DC 02/08/19 10:30 Ceftriaxone Sodium (Rocephin) 1 gm 1X ONCE IVP 02/08/19 10:45 02/08/19 10:46 DC 02/08/19 11:47 Azithromycin 250 ml @ 250 mls/hr 1X ONCE IV 02/08/19 11:00 02/08/19 11:59 DC 02/08/19 11:52 ALLERGIES ALLERGIES: Coded Allergies: No Known Drug Allergies (Unverified , 05/22/14) ROS Review of System 14 point ROS conducted with pertinent positives noted above in HPI. PHYSICAL EXAM General: Alert, Oriented X3, Cooperative, No acute distress HEENT: Atraumatic Lungs: Other (course throughout ) Heart: Regular rate, Normal S1, Normal S2, Other Abdomen: Normal bowel sounds (systolic murmur ), Soft Extremities: No edema, Normal pulses Skin: No breakdown, No significant lesion Neuro: Normal speech, Sensation intact Psych/Mental Status: Mental status NL, Mood NL MUSCULOSKELETAL: Osteoarthritic changes both hands VITALS VITALS Vital Signs Date Time Temp Pulse Resp B/P (MAP) Pulse Ox O2 Delivery O2 Flow Rate FiO2 02/08/19 11:10 97 Room Air 02/08/19 09:40 98.0 80 20 149/67 (94) 98.0 LABS Lab: Laboratory Tests Test 02/08/19 10:05 White Blood Count 18.8 x10^3/uL (4.0-11.0) Red Blood Count 4.81 x10^6/uL (4.30-5.70) Hemoglobin 13.6 g/dL (13.0-17.5) Hematocrit 40.1 % (39.0-53.0) Mean Corpuscular Volume 84 fL (79-100) Mean Corpuscular Hemoglobin 28 pg (25-35) Mean Corpuscular Hemoglobin Concent 34 g/dL (31-37) Red Cell Distribution Width 13.6 % (11.5-14.5) Platelet Count 259 x10^3/uL (140-400) Neutrophils (%) (Auto) 83 % (31-73) Lymphocytes (%) (Auto) 9 % (24-48) Monocytes (%) (Auto) 8 % (0-9) Eosinophils (%) (Auto) 0 % (0-3) Basophils (%) (Auto) 0 % (0-3) Neutrophils # (Auto) 15.6 x10^3uL (1.8-7.7) Lymphocytes # (Auto) 1.7 x10^3/uL (1.0-4.8) Monocytes # (Auto) 1.4 x10^3/uL (0.0-1.1) Eosinophils # (Auto) 0.0 x10^3/uL (0.0-0.7) Basophils # (Auto) 0.1 x10^3/uL (0.0-0.2) Segmented Neutrophils % 84 % (35-66) Band Neutrophils % 3 % (0-9) Lymphocytes % 7 % (24-48) Monocytes % 5 % (0-10) Basophils % 1 % (0-3) Dohle Bodies Present Platelet Estimate Adequate (ADEQUATE) Large Platelets Few Sodium Level 138 mmol/L (136-145) Potassium Level 3.8 mmol/L (3.5-5.1) Chloride Level 100 mmol/L (98-107) Carbon Dioxide Level 26 mmol/L (21-32) Anion Gap 12 (6-14) Blood Urea Nitrogen 15 mg/dL (8-26) Creatinine 0.8 mg/dL (0.7-1.3) Estimated GFR (Cockcroft-Gault) 94.5 BUN/Creatinine Ratio 19 (6-20) Glucose Level 125 mg/dL (70-99) Lactic Acid Level 1.4 mmol/L (0.4-2.0) Calcium Level 8.4 mg/dL (8.5-10.1) Magnesium Level 1.6 mg/dL (1.8-2.4) Total Bilirubin 0.6 mg/dL (0.2-1.0) Aspartate Amino Transf (AST/SGOT) 13 U/L (15-37) Alanine Aminotransferase (ALT/SGPT) 25 U/L (16-63) Alkaline Phosphatase 74 U/L (46-116) Creatine Kinase 92 U/L (39-308) Creatine Kinase MB (Mass) 2.0 ng/mL (0.0-3.6) Creatine Kinase MB Relative Index 2.2 % (0-4) Troponin I Quantitative 0.098 ng/mL (0.000-0.055) GF-Vpn-G-Type Natriuretic Peptide 574 pg/mL (0-124) Total Protein 7.5 g/dL (6.4-8.2) Albumin 3.5 g/dL (3.4-5.0) Albumin/Globulin Ratio 0.9 (1.0-1.7) Lipase 136 U/L (73-393) Thyroid Stimulating Hormone (TSH) 2.143 uIU/mL (0.358-3.74) ECHOCARDIOGRAM ECHOCARDIOGRAM <Conclusion> The ejection fraction is mildly impaired. The Ejection Fraction is 40%. The Left Ventricle is mildly dilated. There is borderline to mild concentric left ventricular hypertrophy. The left atrium is moderately dilated. The right atrium is mildly dilated. The aortic valve is trileaflet. The aortic valve is mildly calcified. Doppler and Color-flow revealed trace mitral regurgitation. The pulmonic valve is not well visualized. There is no evidence of significant pericardial effusion. DATE: 04/02/18 1256 STRESS TEST STRESS TEST Conclusion 1. No EKG evidence of stress-induced ischemia. 2. Nuclear imaging shows no significant reversible ischemia. 3. Nuclear imaging shows a small fixed inferior wall defect most consistent with a previous small infarct. 4. Left ventricular ejection fraction of 56% with minimal hypokinesis of the inferior septal wall. 5. Moderate to moderately low risk Lexiscan nuclear stress test. DATE: 12/12/17 1416 HEART CATH HEART CATH Coronary Angiography The patient's coronary anatomy is left dominant. The left main coronary artery is a small size vessel with moderate diffused disease. The left main trifurcates to the left anterior descending, circumflex, and ramus. The left anterior descending artery is a medium size vessel with moderate diffused disease. There is a 80% stenosis in the proximal segment. and 40% to 60 % to the distal segment The first diagonal branch is a small size vessel with stenosis. There is a 100% stenosis in the proximal segment. The second diagonal branch is a small size vessel with moderate-severe diffused disease. The third diagonal branch is a small size vessel with moderate diffused disease. The circumflex artery is a small size vessel that is long and has diffuse disease in the 40 to 80% range. There is a 100% stenosis in the distal segment. The first obtuse marginal branch is a small size vessel with diffuse calcification noted throughout this vessel and with significant stenosis. There is a 80% stenosis in the proximal segment. The second obtuse marginal branch is a small size vessel with stenosis. There is a 100% stenosis in the mid segment. The third obtuse marginal branch is a small size vessel with diffuse calcification noted throughout this vessel and without significant stenosis. There is a 80% stenosis in the distal segment. The left posterior descending artery is a small size vessel with mild-moderate diffused disease. There is a 80 % stenosis in the distal segment. The ramus intermedius artery is a small size vessel with moderate diffused disease. The right coronary artery is a small size vessel with stenosis. There is a 100% stenosis in the proximal segment. The left internal mammary artery to the mid left anterior descending artery segment is patent . The saphenous vein graft to the second obtuse marginal branch segment jumps to the PDA is patent . The saphenous vein graft to the distal right coronary artery reveals a stenosis in the proximal to mid segment of 100%. Conclusion This pt with an ischemic cardiomyopathy that has CAD of the mashpee vessels and one SVG is 100% obstructed. He has severe diffuse small vessel CAD. I would recommend medical treatment for life. DATE: 12/14/17 0466 Findings: The left main has diffuse disease and is probably up in about 60% stenosed. The LAD is 100% occluded in the midsegment. The circumflex is diffusely diseased and totally occluded distally. All of the marginal vessels were occluded. The RCA was 100% occluded at the ostium. The saphenous vein graft to the RCA is 100% occluded at the ostium. The sequential saphenous vein graft to the obtuse marginal and the PDA has a proximal 95% stenosis. The MARTINEZ graft to the LAD is open and has very good flow. There is mild diffuse disease of the distal LAD. After this was evaluated IV felt that the patient has diffuse mashpee vessel disease and severe graft disease with one graft totally occluded and the other one subtotally stenosed. Conclusion This patient has severe mashpee vessel coronary artery disease as well as significant graft disease. The totally occluded graft to the RCA appears to be a chronic obstruction. The MARTINEZ graft appears to be open and normal. The graft to the obtuse marginal and the PDA was stented with excellent results. We will support the patient with the balloon pump on anticoagulation until morning and then in the morning if everything is doing well Will DC the balloon pump and the groin lines. DATE: 04/01/18 2195 ASSESSMENT/PLAN ASSESSMENT/PLAN 1. Acute hypoxic respiratory failure secondary to PNA 2. Elevated troponin; initial 0.09. Probable demand ischemia in the setting of above. 3. Leukocytosis 4. Pneumonia 5. CAD s/p remote CABG and subsequent PCI/stent to SVG to the OM and the PDA. SVG to RCA with [employer] from cath 03/2018 as noted above 6. Hypertension; controlled 7. Hyperlipidemia; statin 8. Chronic systolic HF; NT pro BNP only mildly elevated and CXR without significant vascular congestion 9. ICM; LVEF 40% per echo 03/2018 10. Hypomagnesemia Recommendations Echo to assess LV systolic function Check lipids Replace Mg Resume secondary prevention including ASA, Plavix, statin, BB, and ACEi Treatment of PNA as per PCP Further recommendations pending above diagnostics. HUYEN CROFT APRN Feb 08, 2019 12:13
[2019-02-08 12:33] LABS: CHOLESTEROL/HDL RATIO 2.8
--- NOTE | 2019-02-08 12:34 | EKG ---
[facility] [address] [place] [address] Test Date: 2019-02-08 Test Time: 09:45:11 Pat Name: ONEL ARREDONDO Department: Room: 201 1 Gender: M Transcription: : 1945 Requested By: ERWIN CASTLE Order Number: [id number] Reading MD: Satnam Mcnally MD Measurements Intervals [place] Rate: 92 P: 41 DC: 146 QRS: 12 QRSD: 90 T: -161 QT: 302 QTc: 378 Interpretive Statements SINUS RHYTHM ATRIAL PREMATURE COMPLEX(ES) CONSIDER LEFT VENTRICULAR HYPERTROPHY VERSUS LATERAL ISCHEMIA Electronically Signed On 02-08-2019 14:31:22 CDT by Satnam Mcnally MD
[2019-02-08] MEDS ORDERED: CYCLOBENZAPRINE 10 MG TABLET. PO PRN (14:00)
--- NOTE | 2019-02-08 14:00 | NUR ---
Admission: Patient transferred from ER to room 201. Oriented to room. Family at bedside. Family interpreted for patient who is [place] speaking. Call light with in reach. Will continue to monitor.
[2019-02-08] MEDS ORDERED: TAMS0.4C97 PO (14:53)
[2019-02-08] MEDS ORDERED: VENTOLIN HFA18 GM INH (14:53)
[2019-02-08] MEDS ORDERED: NITR0.4T SL (14:53)
[2019-02-08] MEDS ORDERED: ASPI-630 PO (14:53)
[2019-02-08] MEDS ORDERED: CRESTOR10 MG PO (14:53)
[2019-02-08] MEDS ORDERED: METF500T16 PO (14:53)
[2019-02-08 15:00] VITALS: BP 109/65
[2019-02-08] MEDS ORDERED: MAGNESIUM SULFATE 2GM 50 ML IV ONE (15:00)
[2019-02-08] MEDS ORDERED: DEXTROSE 50% 25 GM / 50ML DISP.SYRIN. IV PRN (15:00)
--- NOTE | 2019-02-08 15:10 | CARD ---
MR#: [id number] Date of Study: 02/08/2019 Ordering Physician: DAVID REYES, Referring Physician: YUKI PICHARDO, Tech: Gladys Hoopersutyshawn APPROVED REPORT EXAM: Two-dimensional and M-mode echocardiogram with Doppler and color Doppler. Other Information Quality : FairHR: 82bpm Technically limited study due to body habitus and CABG. INDICATION CAD RISK FACTORS Hypertension Hyperlipidemia Diabetes Previous smoker 2D DIMENSIONS RVDd3.7 (2.9-3.5cm)Left Atrium(2D)4.1 (1.6-4.0cm) IVSd1.0 (0.7-1.1cm)Aortic Root(2D)3.0 (2.0-3.7cm) LVDd7.0 (3.9-5.9cm)LVOT Diameter2.1 (1.8-2.4cm) PWd1.2 (0.7-1.1cm)LVDs4.9 (2.5-4.0cm) FS (%) 29.9 %SV141.1 ml LVEF(%)55.7 (>50%) Aortic Valve AoV Peak Luis.160.9cm/sAoV VTI33.0cm AO Peak GR.10.4mmHgLVOT Peak Luis.120.3cm/s LVOT VTI 24.84cmAO Mean GR.6mmHg LINA (VMAX)1.24ug5UUX (VTI)2.58cm2 Mitral Valve MV E Evxwdxny433.4cm/sMV E Peak Gr.118mmHg MV DECEL DVDV656oaDI A Nkkxicll29.3cm/s MV E Mean Gr.4mmHgMV ZWE32vt E/A Ratio1.7MVA (PHT)4.47cm2 TDI E/Lateral E'14.4E/Medial E'15.1 Pulmonary Valve PV Peak Jlwiwvyd996.7cm/sPV Peak Grad.6mmHg Tricuspid Valve TR P. Txggumqo972nm/sRAP IFRYKLPE5qrZr TR Peak Gr.38frCwCUMV55jeSf Pulmonary Vein S1 Hreezfcc84.2cm/sD2 Lbtfqzmz72.8cm/s PVa vitmdnib41vlpn LEFT VENTRICLE The left ventricle is normal size. There is normal left ventricular wall thickness. The left ventricu lar systolic function is normal and the ejection fraction is within normal range. EF55% There is norm al LV segmental wall motion. Transmitral Doppler flow pattern is Grade II-pseudonormal filling dynami cs. RIGHT VENTRICLE The right ventricle is normal size. There is normal right ventricular wall thickness. The right ventr icular systolic function is normal. ATRIA The left atrium is mildly dilated. The right atrium size is normal. The interatrial septum is intact with no evidence for an atrial septal defect or patent foramen ovale as noted on 2-D or Doppler imagi ng. AORTIC VALVE The aortic valve is mildly sclerotic. Doppler and Color Flow revealed no significant aortic regurgita tion. There is no significant aortic valvular stenosis. There is no aortic valvular vegetation. MITRAL VALVE The mitral valve is thickened but opens well. There is no evidence of mitral valve prolapse. There is no mitral valve stenosis. Doppler and Color-flow revealed trace mitral regurgitation. TRICUSPID VALVE The tricuspid valve is normal in structure and function. Doppler and Color Flow revealed trace tricus pid regurgitation with an estimated PAP 35 mmHg. There is no tricuspid valve stenosis. PULMONIC VALVE The pulmonic valve is not well visualized. Doppler and Color Flow revealed no pulmonic valvular regur gitation. GREAT VESSELS The aortic root is normal in size. The IVC is normal in size and collapses >50% with inspiration. PERICARDIAL EFFUSION There is no evidence of significant pericardial effusion. Critical Notification Critical Value: No <Conclusion> The left ventricular systolic function is normal and the ejection fraction is within normal range. EF 55% There is normal LV segmental wall motion. Signed by : Satnam Mcnally, Electronically Approved : 02/08/2019 15:09:49
[2019-02-08] MEDS: LISINOPRIL 20 MG TABLET PO SCH (15:45)
[2019-02-08] MEDS: methylPREDNISolone SOD SUCC PF 40 MG/ML VIAL. IV SCH ×2 (15:45→21:16)
[2019-02-08] MEDS: amLODIPine BESYLATE 10 MG TABLET PO SCH (15:45)
[2019-02-08] MEDS: CHOLECALCIFEROL (VITAMIN D3) 1,000 UNIT TABLET PO SCH (15:45)
[2019-02-08] MEDS: hydroCHLOROthiazide 25 MG TABLET PO SCH (15:47)
[2019-02-08] MEDS: CLOPIDOGREL BISULFATE 75 MG TABLET PO SCH (15:47)
[2019-02-08] MEDS ORDERED: ALBUTEROL SULFATE 2.5 MG/3 ML NEBU. NEB SCH (16:00)
[2019-02-08] MEDS ORDERED: NON FORMULARY ITEM (Albuterol Sulfate (Ventolin Hfa Inhaler) 2 PUFF) INH SCH (16:00)
[2019-02-08] MEDS: INSULIN LISPRO 300 UNITS/3 ML INSULN.PEN. SQ SCH (17:00)
[2019-02-08 19:17] VITALS: BP 137/65
[2019-02-08] MEDS: TAMSULOSIN 0.4 MG CAP.ER.24H. PO SCH (21:14)
[2019-02-08] MEDS: ATORVASTATIN CALCIUM 40 MG TABLET. PO SCH (21:14)
[2019-02-08] MEDS: METOPROLOL TART IMMED RELEASE 25 MG TABLET. PO SCH (21:14)
[2019-02-08 22:08] VITALS: BP 134/63
[2019-02-09 02:00] VITALS: BP 138/68
[2019-02-09] MEDS: IPRATRPIUM/ALBUTEROL 0.5/2.5MG 3 ML NEBU. NEB SCH ×5 (03:37→20:20)
[2019-02-09] MEDS: guaiFENesin ORAL 200 MG/10 ML LIQUID. PO PRN ×2 (04:33→14:56)
[2019-02-09 05:02] LABS: BASO % 0 % (0-3); EOS % 0 % (0-3); HEMATOCRIT 38.7 % (39.0-53.0); HEMOGLOBIN 12.6 g/dL (13.0-17.5); LYMPH # 1.9 x10^3/uL (1.0-4.8); LYMPH % 9 % (24-48); MEAN CORPUSCULAR HEMOGLOBIN 28 pg (25-35); MEAN CORPUSCULAR HGB CONC 33 g/dL (31-37); MEAN CORPUSCULAR VOLUME 85 fL (79-100); MONO # 0.5 x10^3/uL (0.0-1.1); MONO % 3 % (0-9); NEUT # 18.3 x10^3uL (1.8-7.7); NEUT % 88 % (31-73); PLATELET COUNT 254 x10^3/uL (140-400); RED BLOOD COUNT 4.57 x10^6/uL (4.30-5.70); RED CELL DISTRIBUTION WIDTH 13.5 % (11.5-14.5); WHITE BLOOD COUNT 20.7 x10^3/uL (4.0-11.0)
[2019-02-09 05:27] LABS: CALCIUM 8.8 mg/dL (8.5-10.1); CREATININE 0.9 mg/dL (0.7-1.3); GFR 82.5; POTASSIUM 3.9 mmol/L (3.5-5.1)
[2019-02-09] MEDS: methylPREDNISolone SOD SUCC PF 40 MG/ML VIAL. IV SCH ×3 (06:46→21:34)
[2019-02-09 07:00] VITALS: BP 135/51
[2019-02-09] MEDS ORDERED: predniSONE 20 MG TABLET PO SCH (09:00)
[2019-02-09] MEDS: traMADol 50 MG TABLET PO PRN (09:07)
[2019-02-09] MEDS: amLODIPine BESYLATE 10 MG TABLET PO SCH (09:08)
[2019-02-09] MEDS: hydroCHLOROthiazide 25 MG TABLET PO SCH (09:08)
[2019-02-09] MEDS: CHOLECALCIFEROL (VITAMIN D3) 1,000 UNIT TABLET PO SCH (09:08)
[2019-02-09] MEDS: LISINOPRIL 20 MG TABLET PO SCH (09:10)
[2019-02-09] MEDS: ASPIRIN CHEWABLE 81 MG TABLET. PO SCH (09:12)
[2019-02-09] MEDS: CLOPIDOGREL BISULFATE 75 MG TABLET PO SCH (09:12)
[2019-02-09] MEDS: METOPROLOL TART IMMED RELEASE 25 MG TABLET. PO SCH ×2 (09:13→21:35)
[2019-02-09] MEDS: INSULIN LISPRO 300 UNITS/3 ML INSULN.PEN. SQ SCH ×3 (09:24→17:17)
--- NOTE | 2019-02-09 09:50 | HP ---
ADMIT DATE: 02/08/2019 REASON FOR ADMISSION: Shortness of breath. HISTORY OF PRESENT ILLNESS: The patient is a 73-year-old gentleman who was recently seen in the Emergency Department and diagnosed with a bronchitis, receiving a course of antibiotics recently approximately 2 weeks ago. The patient has been suffering from upper respiratory tract infection symptoms, cough, sneezing, watery eyes. The patient now is complaining of pleurisy, fevers and chills and progressive dyspnea, reason why he decided to come back to the Emergency Department for evaluation. He has been diagnosed with pneumonia and will be admitted for further treatment. Serendipitously, the patient was found to have an elevated troponin. He does not refer anginal type of symptoms. His chest discomfort is mostly associated with cough effort. He denies sensation of impending doom. No diaphoresis, no nausea or vomiting associated with this discomfort. The patient at the time of my evaluation is in mild respiratory distress due to his symptoms and cough. Hemodynamically stable. Family members are at bedside. He refers also a headache and generalized malaise associated with all these symptoms. He denies abdominal pain, no urinary symptoms. No lower extremity edema, no paroxysmal nocturnal dyspnea or orthopnea has been reported. The patient is being admitted at the request of the ER for further treatment. PAST MEDICAL HISTORY: Includes COPD, CHF, coronary artery disease, hypertension, dyslipidemia, CVA with no residual deficits apparent. PAST SURGICAL HISTORY: He has CABG and cataract removal. FAMILY HISTORY: Reviewed and pertinent for coronary artery disease and hypertension. SOCIAL HISTORY: The patient is currently . He used to smoke, but quit in the . Greater than a 67-phyd-gmpl history of smoking. He denies any alcohol or illegal drug abuse. REVIEW OF SYSTEMS: Pertinent as per HPI, otherwise 14-point review of system is negative. ALLERGIES: No known drug allergies. PHYSICAL EXAMINATION: GENERAL: The patient is awake, alert, oriented to person, time, place and situation. He is in no acute distress. VITAL SIGNS: Blood pressure 149/67, with a pulse of 80, with a respiratory rate of 20 and temperature of 98, pulse ox was 97% on room air. HEENT: Head is atraumatic, normal shape. Eyes: Normal conjunctivae and lids. PERRLA. ENT: No deformed nose. Normal external ear canals. Nose with no deformity. No exudate at the back of the throat. No dysphagia or odynophagia. NECK: Supple, nontender, no masses, no JVD, no carotid bruits. No lymphadenopathy noted. CARDIOVASCULAR: S1, S2, regular rhythm, no murmurs, gallops or rubs. LUNGS: Clear to auscultation on the upper lobes, lower lobes with rhonchi. No crackles. He does have some expiratory wheezing. ABDOMEN: Soft, nontender. Bowel sounds are present. No hepatosplenomegaly appreciated. EXTREMITIES: No edema, no clubbing, no cyanosis. SKIN: No rashes, no lesions. Warm to the touch. NEUROLOGIC: Alert, awake, oriented to person, time, place and situation. Cranial nerves 2-12 intact. No motor or sensory deficits were appreciated. MUSCULOSKELETAL: With osteoarthritic changes. LABORATORY DATA: White blood cell count of 18,000, hemoglobin of 13.6, with a platelet count of 259. Sodium 138, potassium 3.8, carbon dioxide 26, BUN of 15, creatinine 0.9, glucose of 125, calcium 8.4, magnesium 1.6. His troponin was 0.09 initially, proBNP was 574. Chest x-ray: Patchy reticular and airspace opacity on the left lung base and mild reticular opacity of the right lung base, may be due to mild patchy infiltrate or atelectasis. IMPRESSION: 1. Community-acquired pneumonia. 2. Acute exacerbation of chronic obstructive pulmonary disease secondary to the above. 3. Mildly elevated troponin, most likely type 2 non-ST elevation myocardial infarction secondary to demand ischemia from the above infectious process. 4. History of coronary artery disease, status post coronary artery bypass graft on his last PCI. The patient was recommended medical therapy. No amenable lesions for stents. 5. History of hypertension. 6. History of dyslipidemia. PLAN: Will be to admit the patient and start him on levofloxacin. The patient will be given also steroids in light of his acute respiratory distress. Nebulization therapy will be started as well. For recommendations from senior health consultant regarding this mildly elevated troponin, which most likely is secondary to demand ischemia. Restart home medications. Labs in the a.m. DVT prophylaxis with heparin subcutaneously. Further recommendations based on the clinical course. Thank you for allowing [facility] care for the patient. YUKI PICHARDO MD DR: Aaron JOB#: [id number] / [id number]
[2019-02-09] MEDS ORDERED: CYCLOBENZAPRINE 10 MG TABLET. PO PRN (10:00)
[2019-02-09] MEDS: CELECOXIB 100 MG CAPSULE. PO SCH ×2 (10:23→21:35)
--- NOTE | 2019-02-09 10:35 | PDOC ---
CARDIO Progress Notes Date and Time Date of Service 02/09/2019 Time of Evaluation 1030 Subjective Subjective: No Chest Pain, No shortness of breath, No Palpitations Vitals Vitals Vital Signs Date Time Temp Pulse Resp B/P (MAP) Pulse Ox O2 Delivery O2 Flow Rate FiO2 02/09/19 09:13 90 141/56 02/09/19 09:07 Nasal Cannula 2.0 02/09/19 07:13 94 02/09/19 07:00 97.4 20 97.4 Weight Weight [ ] Input and Output Intake and Output Intake and Output 02/09/19 07:00 Intake Total 1000 ml Output Total 902 ml Balance 98 ml Intake Oral 1000 ml Output Urine Total 902 ml Laboratory Labs Laboratory Tests Test 02/08/19 11:00 02/08/19 13:00 02/08/19 15:55 02/08/19 20:36 Triglycerides Level 68 mg/dL (0-150) Cholesterol Level 122 mg/dL (0-200) LDL Cholesterol, Calculated 64 mg/dL (0-100) VLDL Cholesterol, Calculated 14 mg/dL (0-40) Non-HDL Cholesterol Calculated 78 mg/dL (0-129) HDL Cholesterol 44 mg/dL (40-60) Cholesterol/HDL Ratio 2.8 Troponin I Quantitative 0.074 ng/mL (0.000-0.055) 0.065 ng/mL (0.000-0.055) Glucose (Fingerstick) 157 mg/dL (70-99) Test 02/09/19 04:00 02/09/19 07:19 White Blood Count 20.7 x10^3/uL (4.0-11.0) Red Blood Count 4.57 x10^6/uL (4.30-5.70) Hemoglobin 12.6 g/dL (13.0-17.5) Hematocrit 38.7 % (39.0-53.0) Mean Corpuscular Volume 85 fL (79-100) Mean Corpuscular Hemoglobin 28 pg (25-35) Mean Corpuscular Hemoglobin Concent 33 g/dL (31-37) Red Cell Distribution Width 13.5 % (11.5-14.5) Platelet Count 254 x10^3/uL (140-400) Neutrophils (%) (Auto) 88 % (31-73) Lymphocytes (%) (Auto) 9 % (24-48) Monocytes (%) (Auto) 3 % (0-9) Eosinophils (%) (Auto) 0 % (0-3) Basophils (%) (Auto) 0 % (0-3) Neutrophils # (Auto) 18.3 x10^3uL (1.8-7.7) Lymphocytes # (Auto) 1.9 x10^3/uL (1.0-4.8) Monocytes # (Auto) 0.5 x10^3/uL (0.0-1.1) Eosinophils # (Auto) 0.0 x10^3/uL (0.0-0.7) Basophils # (Auto) 0.0 x10^3/uL (0.0-0.2) Sodium Level 136 mmol/L (136-145) Potassium Level 3.9 mmol/L (3.5-5.1) Chloride Level 99 mmol/L (98-107) Carbon Dioxide Level 25 mmol/L (21-32) Anion Gap 12 (6-14) Blood Urea Nitrogen 23 mg/dL (8-26) Creatinine 0.9 mg/dL (0.7-1.3) Estimated GFR (Cockcroft-Gault) 82.5 Glucose Level 181 mg/dL (70-99) Calcium Level 8.8 mg/dL (8.5-10.1) Glucose (Fingerstick) 185 mg/dL (70-99) Microbiology Micro Microbiology 02/08/19 Blood Culture - Preliminary, Resulted NO GROWTH AFTER 1 DAY Physical Exam HEENT: Neck Supple W Full Motion Chest: Symmetric LUNGS: Other (basilar crackles) Heart: RRR (SR) Abdomen: Soft N/T Extremities: No Calf Tenderness, Other (1-2+ bilateral LE pitting edema) Assessment Assessment 1. Acute hypoxic respiratory failure secondary to PNA 2. Elevated troponin; initial 0.09. demand mediate, type 2. 3. CAD s/p remote CABG and subsequent PCI/stent to SVG to the OM and the PDA. SVG to RCA with [employer] CONSULTANT from cath 03/2018 clinically stable. 6. Hypertension; controlled 7. Hyperlipidemia; on goal 8. Chronic diastolic CHF: EF and WM nml. SOA more from pneumonia 9. ICM; recovered. Recommendations 1. Continue with secondary prevention including DAPT. Lasix PRN. 2. PNA treatment per pulmonary 3. Follow up with Dr. Polk on March 08 at 2:45 DAVID REYES [employer] WORK[employer] DEL[employer]ER Feb 09, 2019 10:35
[2019-02-09 11:00] VITALS: BP 107/46
--- NOTE | 2019-02-09 11:29 | PDOC ---
PROGRESS NOTES Chief Complaint Chief Complaint 1. Community-acquired pneumonia. 2. Acute exacerbation of chronic obstructive pulmonary disease secondary to the above. 3. Mildly elevated troponin, most likely type 2 non-ST elevation myocardial infarction secondary to demand ischemia from the above infectious process. 4. History of coronary artery disease, status post coronary artery bypass graft on his last PCI. The patient was recommended medical therapy. No amenable lesions for stents. 5. History of hypertension. 6. History of dyslipidemia. Plan: conitneus with levofloxacin pain management will give codeine at night to help patient sleep and suppress cough reassess in the am follow recommendations from cardiology will taper steroids today chest percussion therapy History of Present Illness History of Present Illness patient with improved symptom still having cough with clear sputum overall better but having a lot of ba k papin which is chronic in nature, no alarming signs voiced, no weakness reported. Vitals Vitals Vital Signs Date Time Temp Pulse Resp B/P (MAP) Pulse Ox O2 Delivery O2 Flow Rate FiO2 02/09/19 10:56 91 Nasal Cannula 2.0 02/09/19 09:13 90 141/56 02/09/19 07:00 97.4 20 97.4 Physical Exam General: Alert, Oriented X3, Cooperative, No acute distress Heart: Regular rate, Normal S1, Normal S2, Other Lungs: Clear Abdomen: Normal bowel sounds (systolic murmur ), Soft Extremities: No edema, Normal pulses Skin: No breakdown, No significant lesion Labs LABS Laboratory Tests Test 02/08/19 13:00 02/08/19 15:55 02/08/19 20:36 02/09/19 04:00 Troponin I Quantitative 0.074 ng/mL (0.000-0.055) 0.065 ng/mL (0.000-0.055) Glucose (Fingerstick) 157 mg/dL (70-99) White Blood Count 20.7 x10^3/uL (4.0-11.0) Red Blood Count 4.57 x10^6/uL (4.30-5.70) Hemoglobin 12.6 g/dL (13.0-17.5) Hematocrit 38.7 % (39.0-53.0) Mean Corpuscular Volume 85 fL (79-100) Mean Corpuscular Hemoglobin 28 pg (25-35) Mean Corpuscular Hemoglobin Concent 33 g/dL (31-37) Red Cell Distribution Width 13.5 % (11.5-14.5) Platelet Count 254 x10^3/uL (140-400) Neutrophils (%) (Auto) 88 % (31-73) Lymphocytes (%) (Auto) 9 % (24-48) Monocytes (%) (Auto) 3 % (0-9) Eosinophils (%) (Auto) 0 % (0-3) Basophils (%) (Auto) 0 % (0-3) Neutrophils # (Auto) 18.3 x10^3uL (1.8-7.7) Lymphocytes # (Auto) 1.9 x10^3/uL (1.0-4.8) Monocytes # (Auto) 0.5 x10^3/uL (0.0-1.1) Eosinophils # (Auto) 0.0 x10^3/uL (0.0-0.7) Basophils # (Auto) 0.0 x10^3/uL (0.0-0.2) Sodium Level 136 mmol/L (136-145) Potassium Level 3.9 mmol/L (3.5-5.1) Chloride Level 99 mmol/L (98-107) Carbon Dioxide Level 25 mmol/L (21-32) Anion Gap 12 (6-14) Blood Urea Nitrogen 23 mg/dL (8-26) Creatinine 0.9 mg/dL (0.7-1.3) Estimated GFR (Cockcroft-Gault) 82.5 Glucose Level 181 mg/dL (70-99) Calcium Level 8.8 mg/dL (8.5-10.1) Magnesium Level 2.5 mg/dL (1.8-2.4) Test 02/09/19 07:19 Glucose (Fingerstick) 185 mg/dL (70-99) Review of Systems Review of Systems pertinent as per hpi otherwise negative Assessment and Plan Assessmemt and Plan Problems Medical Problems: (1) Leukocytosis Status: Acute (2) NSTEMI (non-ST elevated myocardial infarction) Status: Acute (3) Right lower lobe pneumonia Status: Acute (4) Shortness of breath Status: Acute Comment Review of Relevant I have reviewed the following items jevean (where applicable) has been applied. Labs Laboratory Tests Test 02/08/19 10:05 02/08/19 11:00 02/08/19 13:00 02/08/19 15:55 White Blood Count 18.8 x10^3/uL (4.0-11.0) Red Blood Count 4.81 x10^6/uL (4.30-5.70) Hemoglobin 13.6 g/dL (13.0-17.5) Hematocrit 40.1 % (39.0-53.0) Mean Corpuscular Volume 84 fL (79-100) Mean Corpuscular Hemoglobin 28 pg (25-35) Mean Corpuscular Hemoglobin Concent 34 g/dL (31-37) Red Cell Distribution Width 13.6 % (11.5-14.5) Platelet Count 259 x10^3/uL (140-400) Neutrophils (%) (Auto) 83 % (31-73) Lymphocytes (%) (Auto) 9 % (24-48) Monocytes (%) (Auto) 8 % (0-9) Eosinophils (%) (Auto) 0 % (0-3) Basophils (%) (Auto) 0 % (0-3) Neutrophils # (Auto) 15.6 x10^3uL (1.8-7.7) Lymphocytes # (Auto) 1.7 x10^3/uL (1.0-4.8) Monocytes # (Auto) 1.4 x10^3/uL (0.0-1.1) Eosinophils # (Auto) 0.0 x10^3/uL (0.0-0.7) Basophils # (Auto) 0.1 x10^3/uL (0.0-0.2) Segmented Neutrophils % 84 % (35-66) Band Neutrophils % 3 % (0-9) Lymphocytes % 7 % (24-48) Monocytes % 5 % (0-10) Basophils % 1 % (0-3) Dohle Bodies Present Platelet Estimate Adequate (ADEQUATE) Large Platelets Few Sodium Level 138 mmol/L (136-145) Potassium Level 3.8 mmol/L (3.5-5.1) Chloride Level 100 mmol/L (98-107) Carbon Dioxide Level 26 mmol/L (21-32) Anion Gap 12 (6-14) Blood Urea Nitrogen 15 mg/dL (8-26) Creatinine 0.8 mg/dL (0.7-1.3) Estimated GFR (Cockcroft-Gault) 94.5 BUN/Creatinine Ratio 19 (6-20) Glucose Level 125 mg/dL (70-99) Lactic Acid Level 1.4 mmol/L (0.4-2.0) Calcium Level 8.4 mg/dL (8.5-10.1) Magnesium Level 1.6 mg/dL (1.8-2.4) Total Bilirubin 0.6 mg/dL (0.2-1.0) Aspartate Amino Transf (AST/SGOT) 13 U/L (15-37) Alanine Aminotransferase (ALT/SGPT) 25 U/L (16-63) Alkaline Phosphatase 74 U/L (46-116) Creatine Kinase 92 U/L (39-308) Creatine Kinase MB (Mass) 2.0 ng/mL (0.0-3.6) Creatine Kinase MB Relative Index 2.2 % (0-4) Troponin I Quantitative 0.098 ng/mL (0.000-0.055) 0.074 ng/mL (0.000-0.055) 0.065 ng/mL (0.000-0.055) HH-Fhx-V-Type Natriuretic Peptide 574 pg/mL (0-124) Total Protein 7.5 g/dL (6.4-8.2) Albumin 3.5 g/dL (3.4-5.0) Albumin/Globulin Ratio 0.9 (1.0-1.7) Lipase 136 U/L (73-393) Thyroid Stimulating Hormone (TSH) 2.143 uIU/mL (0.358-3.74) Triglycerides Level 68 mg/dL (0-150) Cholesterol Level 122 mg/dL (0-200) LDL Cholesterol, Calculated 64 mg/dL (0-100) VLDL Cholesterol, Calculated 14 mg/dL (0-40) Non-HDL Cholesterol Calculated 78 mg/dL (0-129) HDL Cholesterol 44 mg/dL (40-60) Cholesterol/HDL Ratio 2.8 Test 02/08/19 20:36 02/09/19 04:00 02/09/19 07:19 Glucose (Fingerstick) 157 mg/dL (70-99) 185 mg/dL (70-99) White Blood Count 20.7 x10^3/uL (4.0-11.0) Red Blood Count 4.57 x10^6/uL (4.30-5.70) Hemoglobin 12.6 g/dL (13.0-17.5) Hematocrit 38.7 % (39.0-53.0) Mean Corpuscular Volume 85 fL (79-100) Mean Corpuscular Hemoglobin 28 pg (25-35) Mean Corpuscular Hemoglobin Concent 33 g/dL (31-37) Red Cell Distribution Width 13.5 % (11.5-14.5) Platelet Count 254 x10^3/uL (140-400) Neutrophils (%) (Auto) 88 % (31-73) Lymphocytes (%) (Auto) 9 % (24-48) Monocytes (%) (Auto) 3 % (0-9) Eosinophils (%) (Auto) 0 % (0-3) Basophils (%) (Auto) 0 % (0-3) Neutrophils # (Auto) 18.3 x10^3uL (1.8-7.7) Lymphocytes # (Auto) 1.9 x10^3/uL (1.0-4.8) Monocytes # (Auto) 0.5 x10^3/uL (0.0-1.1) Eosinophils # (Auto) 0.0 x10^3/uL (0.0-0.7) Basophils # (Auto) 0.0 x10^3/uL (0.0-0.2) Sodium Level 136 mmol/L (136-145) Potassium Level 3.9 mmol/L (3.5-5.1) Chloride Level 99 mmol/L (98-107) Carbon Dioxide Level 25 mmol/L (21-32) Anion Gap 12 (6-14) Blood Urea Nitrogen 23 mg/dL (8-26) Creatinine 0.9 mg/dL (0.7-1.3) Estimated GFR (Cockcroft-Gault) 82.5 Glucose Level 181 mg/dL (70-99) Calcium Level 8.8 mg/dL (8.5-10.1) Magnesium Level 2.5 mg/dL (1.8-2.4) Laboratory Tests Test 02/08/19 13:00 02/08/19 15:55 02/08/19 20:36 02/09/19 04:00 Troponin I Quantitative 0.074 ng/mL (0.000-0.055) 0.065 ng/mL (0.000-0.055) Glucose (Fingerstick) 157 mg/dL (70-99) White Blood Count 20.7 x10^3/uL (4.0-11.0) Red Blood Count 4.57 x10^6/uL (4.30-5.70) Hemoglobin 12.6 g/dL (13.0-17.5) Hematocrit 38.7 % (39.0-53.0) Mean Corpuscular Volume 85 fL (79-100) Mean Corpuscular Hemoglobin 28 pg (25-35) Mean Corpuscular Hemoglobin Concent 33 g/dL (31-37) Red Cell Distribution Width 13.5 % (11.5-14.5) Platelet Count 254 x10^3/uL (140-400) Neutrophils (%) (Auto) 88 % (31-73) Lymphocytes (%) (Auto) 9 % (24-48) Monocytes (%) (Auto) 3 % (0-9) Eosinophils (%) (Auto) 0 % (0-3) Basophils (%) (Auto) 0 % (0-3) Neutrophils # (Auto) 18.3 x10^3uL (1.8-7.7) Lymphocytes # (Auto) 1.9 x10^3/uL (1.0-4.8) Monocytes # (Auto) 0.5 x10^3/uL (0.0-1.1) Eosinophils # (Auto) 0.0 x10^3/uL (0.0-0.7) Basophils # (Auto) 0.0 x10^3/uL (0.0-0.2) Sodium Level 136 mmol/L (136-145) Potassium Level 3.9 mmol/L (3.5-5.1) Chloride Level 99 mmol/L (98-107) Carbon Dioxide Level 25 mmol/L (21-32) Anion Gap 12 (6-14) Blood Urea Nitrogen 23 mg/dL (8-26) Creatinine 0.9 mg/dL (0.7-1.3) Estimated GFR (Cockcroft-Gault) 82.5 Glucose Level 181 mg/dL (70-99) Calcium Level 8.8 mg/dL (8.5-10.1) Magnesium Level 2.5 mg/dL (1.8-2.4) Test 02/09/19 07:19 Glucose (Fingerstick) 185 mg/dL (70-99) Microbiology 02/08/19 Blood Culture - Preliminary, Resulted NO GROWTH AFTER 1 DAY Medications Current Medications Albuterol/ Ipratropium (Duoneb) 3 ml 1X ONCE NEB Last administered on at 11:08; Start 02/08/19 at 10:30; Stop 02/08/19 at 10:31; Status DC Aspirin (Donte Aspirin) 325 mg 1X ONCE PO Last administered on 02/08/19at 10:29 ; Start 02/08/19 at 10:30; Stop 02/08/19 at 10:31; Status DC Morphine Sulfate (Morphine Sulfate) 2 mg PRN Q15MIN PRN IV/SQ PAIN GREATER THAN 3/10; Start 02/08/19 at 10:00; Stop 02/09/19 at 09:59; Status Cancel Methylprednisolone Sodium Succinate (SOLU-Medrol 125MG VIAL) 125 mg 1X ONCE IV Last administered on 02/08/19at 10:30; Start 02/08/19 at 10:30; Stop 02/08/19 at 10:31; Status DC Ceftriaxone Sodium (Rocephin) 1 gm 1X ONCE IVP Last administered on 02/08/19at 11:47; Start 02/08/19 at 10:45; Stop 02/08/19 at 10:46; Status DC Azithromycin 250 ml @ 250 mls/hr 1X ONCE IV Last administered on 02/08/19at 11: 52; Start 02/08/19 at 11:00; Stop 02/08/19 at 11:59; Status DC Ondansetron HCl (Zofran) 4 mg PRN Q4HRS PRN IV NAUSEA/VOMITING; Start 02/08/19 at 11:30 Acetaminophen (Tylenol) 650 mg PRN Q4HRS PRN PO TEMP OVER 100.4F OR MILD PAIN Last administered on 02/09/19at 04:31; Start 02/08/19 at 11:30 Al Hydroxide/Mg Hydroxide (Mylanta Plus Xs) 30 ml PRN DAILY PRN PO HEARTBURN / GAS; Start 02/08/19 at 11:30 Docusate Sodium (Colace) 100 mg PRN BID PRN PO CONSTIPATION; Start 02/08/19 at 11:30 Albuterol Sulfate (Ventolin Neb Soln) 2.5 mg PRN Q4HRS PRN NEB SHORTNESS OF BREATH; Start 02/08/19 at 11:30 Albuterol/ Ipratropium (Duoneb) 3 ml Q4HRS NEB Last administered on 02/09/19 10 :56; Start 02/08/19 at 12:00 Guaifenesin (Robitussin) 200 mg PRN Q4HRS PRN PO COUGH Last administered on 02/09 04:33; Start 02/08/19 at 11:30 Lorazepam (Ativan) 0.5 mg PRN Q4HRS PRN PO ANXIETY / AGITATION; Start 02/08/19 at 11:30 Amlodipine Besylate (Norvasc) 10 mg DAILY PO Last administered on 02/09/19 09: 08; Start 02/08/19 at 12:30 Vitamin D (Vitamin D3) 1,000 unit DAILY PO Last administered on 02/09/19 09:08 ; Start 02/08/19 at 12:30 Clopidogrel Bisulfate (Plavix) 75 mg DAILY PO Last administered on 02/09/19 09: 12; Start 02/08/19 at 12:30 Cyclobenzaprine HCl (Flexeril) 5 mg PRN TID PRN PO MUSCLE SPASMS; Start at 14:00; Stop 02/08/19 at 14:56; Status DC Metoprolol Tartrate (Lopressor) 25 mg BID PO Last administered on 02/09/19 09: 13; Start 02/08/19 at 21:00 Prednisone (Prednisone) 40 mg DAILY PO Last administered on 02/09/19 09:13; Start 02/09/19 at 09:00; Stop 02/09/19 at 09:28; Status DC Lisinopril (Prinivil) 20 mg DAILY PO Last administered on 02/09/19 09:10; Start 02/08/19 at 13:00 Levofloxacin/ Dextrose 150 ml @ 100 mls/hr Q24H IV Last administered on 15:44; Start 02/08/19 at 14:00 Ondansetron HCl (Zofran) 4 mg PRN Q8HRS PRN IV NAUSEA/VOMITING; Start 02/08/19 at 12:00; Stop 02/09/19 at 11:59; Status UNV Morphine Sulfate (Morphine Sulfate) 4 mg PRN Q2HR PRN IV PAIN SEVERE Last administered on 02/09/19at 04:28; Start 02/08/19 at 12:00; Stop 02/09/19 at 11:59 Acetaminophen (Tylenol) 650 mg PRN Q4HRS PRN PO FEVER; Start 02/08/19 at 12:00; Stop 02/09/19 at 11:59; Status UNV Nitroglycerin (Nitrostat) 0.4 mg PRN Q5MIN PRN SL CHEST PAIN; Start 02/08/19 at 12:00; Stop 02/09/19 at 11:59 Albuterol/ Ipratropium (Duoneb) 3 ml RTQID NEB ; Start 02/08/19 at 12:00; Stop at 11:59; Status UNV Hydrochlorothiazide (Hydrodiuril) 25 mg DAILY PO Last administered on 02/09/19at 09:08; Start 02/08/19 at 13:00 Magnesium Sulfate 50 ml @ 25 mls/hr 1X ONCE IV Last administered on 02/08/19at 17:46; Start 02/08/19 at 15:00; Stop 02/08/19 at 16:59; Status DC Aspirin (Children'S Aspirin) 81 mg DAILY PO Last administered on 02/09/19at 09:12 ; Start 02/09/19 at 09:00 Nitroglycerin (Nitrostat) 0.4 mg PRN Q5MIN PRN SL CHEST PAIN; Start 02/08/19 at 15:00 Tamsulosin HCl (Flomax) 0.4 mg HS PO Last administered on 02/08/19at 21:14; Start 02/08/19 at 21:00 Non-Formulary Medication (Albuterol Sulfate (Ventolin Hfa Inhaler)) 2 puff Q4HRS INH ; Start 02/08/19 at 16:00; Status UNV Atorvastatin Calcium (Lipitor) 40 mg QHS PO Last administered on 02/08/19at 21:14 ; Start 02/08/19 at 21:00 Insulin Human Lispro (HumaLOG) 0-5 UNITS TIDWMEALS SQ Last administered on 4/5/ 19at 09:24; Start 02/08/19 at 17:00 Dextrose (Dextrose 50%-Water Syringe) 12.5 gm PRN Q15MIN PRN IV SEE COMMENTS; Start 02/08/19 at 15:00 Methylprednisolone Sodium Succinate (SOLU-Medrol 40MG VIAL) 40 mg Q8HRS IV Last administered on 02/09/19at 06:46; Start 02/08/19 at 16:00; Stop 02/09/19 at 09: 52; Status DC Albuterol Sulfate (Ventolin Neb Soln) 2.5 mg Q4HRS NEB ; Start 02/08/19 at 16:00 ; Status UNV Tramadol HCl (Ultram) 50 mg PRN Q8HRS PRN PO MILD TO MODERATE PAIN Last administered on 02/09/19at 09:07; Start 02/09/19 at 08:45 Methylprednisolone Sodium Succinate (SOLU-Medrol 40MG VIAL) 40 mg Q12HR IV ; Start 02/09/19 at 10:00 Cyclobenzaprine HCl (Flexeril) 10 mg PRN Q8HRS PRN PO MUSCLE SPASMS; Start 02/09 at 10:00 Celecoxib (CeleBREX) 100 mg BID PO Last administered on 02/09/19at 10:23; Start 02/09/19 at 10:00 Guaifenesin/ Codeine Phosphate (Robitussin Ac) 5 ml HS PO ; Start 02/09/19 at 21: 00 Active Scripts Active Zithromax (Azithromycin) 250 Mg Tablet 1 Pkg PO UD Take 2 tablets on day 1 and then 1 tablet each day for the next 4 days as directed Prednisone 20 Mg Tablet 2 Tab PO DAILY Levaquin (Levofloxacin) 750 Mg Tablet 750 Mg PO QHS 7 Days Reported Ventolin Hfa Inhaler (Albuterol Sulfate) 18 Gm Hfa.aer.ad 2 Puff INH Q4HRS Aspirin 81 Mg Tab.chew 81 Mg PO DAILY Nitrostat (Nitroglycerin) 0.4 Mg Tab.subl 0.4 Mg SL PRN Q5MIN PRN Crestor (Rosuvastatin Calcium) 10 Mg Tablet 10 Mg PO HS Flomax (Tamsulosin Hcl) 0.4 Mg Cap.er.24h 0.4 Mg PO HS Metformin Hcl 500 Mg Tablet 500 Mg PO DAILY Vitamin D3 (Cholecalciferol (Vitamin D3)) 1,000 Unit Tablet 1 Tab PO DAILY Lisinopril-Hctz 20-25 Mg Tab (Lisinopril/Hydrochlorothiazide) 1 Each Tablet 1 Tab PO DAILY Plavix (Clopidogrel Bisulfate) 75 Mg Tablet 1 Tab PO DAILY Metoprolol Tartrate 25 Mg Tablet 25 Mg PO BID Amlodipine Besylate 5 Mg Tablet 10 Mg PO DAILY Vitals/I & O Vital Sign - Last 24 Hours 02/08/19 02/08/19 02/08/19 02/08/19 11:33 12:03 14:00 15:00 Temp 98.3 98.3 Pulse 86 78 67 Resp 22 22 18 B/P (MAP) 149/70 (96) 148/65 (92) 109/65 (80) Pulse Ox 93 95 95 O2 Delivery Nasal Cannula Nasal Cannula Nasal Cannula Nasal Cannula O2 Flow Rate 2.0 2.0 2.0 2.0 02/08/19 02/08/19 02/08/19 02/08/19 15:45 15:45 16:45 19:17 Temp 98.2 98.2 Pulse 80 85 85 Resp 18 B/P (MAP) 137/65 (89) Pulse Ox 95 96 O2 Delivery Nasal Cannula Nasal Cannula O2 Flow Rate 2.0 2.0 02/08/19 02/08/19 02/08/19 02/08/19 19:46 20:19 21:14 22:08 Temp 98.2 98.2 Pulse 85 73 Resp 18 B/P (MAP) 137/65 134/63 (86) Pulse Ox 95 97 O2 Delivery Nasal Cannula Nasal Cannula Nasal Cannula O2 Flow Rate 2.0 2.0 2.0 02/08/19 02/09/19 02/09/19 02/09/19 23:20 02:00 03:37 07:00 Temp 98.1 97.4 98.1 97.4 Pulse 79 91 Resp 18 20 B/P (MAP) 138/68 (91) 135/51 (79) Pulse Ox 96 95 O2 Delivery Nasal Cannula Nasal Cannula Nasal Cannula Nasal Cannula O2 Flow Rate 2.0 2.0 2.0 2.0 02/09/19 02/09/19 02/09/19 02/09/19 07:13 08:00 09:07 09:08 Pulse 92 B/P (MAP) 141/56 Pulse Ox 94 O2 Delivery Nasal Cannula Nasal Cannula Nasal Cannula O2 Flow Rate 2.0 2.0 2.0 02/09/19 02/09/19 02/09/19 02/09/19 09:10 09:13 10:07 10:56 Pulse 93 90 B/P (MAP) 141/56 141/56 Pulse Ox 91 O2 Delivery Nasal Cannula Nasal Cannula O2 Flow Rate 2.0 2.0 Intake and Output 02/08/19 02/08/19 02/09/19 15:00 23:00 07:00 Intake Total 200 ml 800 ml Output Total 902 ml Balance -702 ml 800 ml YUKI PICHARDO MD Feb 09, 2019 11:29
[2019-02-09] MEDS ORDERED: FUROSEMIDE 20 MG/2 ML VIAL. IVP ONE (12:15)
--- NOTE | 2019-02-09 12:53 | NUR ---
SS following for discharge planning. SS reviewed pt chart. Pt is currently self pay. HCFS following. Pt is from home with spouse and is currently requiring oxygen. No discharge needs noted at this time. SS will continue to follow for pending discharge needs.
[2019-02-09 15:00] VITALS: BP 134/50
[2019-02-09 17:31] LABS: BILIRUBIN,URINE NEGATIVE (NEG); CLARITY,URINE CLEAR; COLOR,URINE YELLOW; NITRITE,URINE NEGATIVE (NEG); PROTEIN,URINE NEGATIVE (NEG-TRACE); UROBILINOGEN,URINE 0.2 mg/dL (0.2 mg/dL)
[2019-02-09 17:39] LABS: BACTERIA,URINE 0 /HPF (0-FEW); RBC,URINE 0 /HPF (0-2); WBC,URINE 0 /HPF (0-4)
[2019-02-09 17:51] LABS: BARBITURATES NEG (NEG); BENZODIAZEPINES NEG (NEG); CANNABINOIDS NEG (NEG); COCAINE NEG (NEG); METHADONE NEG (NEG); OPIATES POS (NEG); PHENCYCLIDINE NEG (NEG)
[2019-02-09 17:58] LABS: AMPHETAMINE/METHAMPHETAMINE NEG (NEG)
[2019-02-09 19:25] VITALS: BP 143/54
[2019-02-09] MEDS ORDERED: guaiFENesin/CODEINE 100mg/10mg 5 ML LIQUID PO SCH (21:00)
[2019-02-09] MEDS: LACTOBACILLUS RHAMNOSUS GG 1 CAPSULE. PO SCH (21:34)
[2019-02-09] MEDS: TAMSULOSIN 0.4 MG CAP.ER.24H. PO SCH (21:35)
[2019-02-09] MEDS: ATORVASTATIN CALCIUM 40 MG TABLET. PO SCH (21:35)
[2019-02-09 23:07] VITALS: BP 104/44
[2019-02-10] MEDS: IPRATRPIUM/ALBUTEROL 0.5/2.5MG 3 ML NEBU. NEB SCH ×3 (00:08→07:27)
[2019-02-10 03:56] VITALS: BP 126/44
[2019-02-10 07:00] VITALS: BP 120/63
[2019-02-10 08:06] LABS: BASO % 0 % (0-3); EOS % 0 % (0-3); HEMATOCRIT 38.1 % (39.0-53.0); HEMOGLOBIN 12.4 g/dL (13.0-17.5); LYMPH # 1.3 x10^3/uL (1.0-4.8); LYMPH % 6 % (24-48); MEAN CORPUSCULAR HEMOGLOBIN 28 pg (25-35); MEAN CORPUSCULAR HGB CONC 33 g/dL (31-37); MEAN CORPUSCULAR VOLUME 85 fL (79-100); MONO # 1.1 x10^3/uL (0.0-1.1); MONO % 5 % (0-9); NEUT # 20.1 x10^3uL (1.8-7.7); NEUT % 89 % (31-73); PLATELET COUNT 285 x10^3/uL (140-400); RED CELL DISTRIBUTION WIDTH 14.1 % (11.5-14.5); WHITE BLOOD COUNT 22.5 x10^3/uL (4.0-11.0)
[2019-02-10] MEDS: methylPREDNISolone SOD SUCC PF 40 MG/ML VIAL. IV SCH (08:10)
[2019-02-10] MEDS: LACTOBACILLUS RHAMNOSUS GG 1 CAPSULE. PO SCH (08:11)
[2019-02-10] MEDS: ASPIRIN CHEWABLE 81 MG TABLET. PO SCH (08:11)
[2019-02-10] MEDS: hydroCHLOROthiazide 25 MG TABLET PO SCH (08:11)
[2019-02-10] MEDS: LISINOPRIL 20 MG TABLET PO SCH (08:11)
[2019-02-10] MEDS: CHOLECALCIFEROL (VITAMIN D3) 1,000 UNIT TABLET PO SCH (08:11)
[2019-02-10] MEDS: amLODIPine BESYLATE 10 MG TABLET PO SCH (08:12)
[2019-02-10] MEDS: CELECOXIB 100 MG CAPSULE. PO SCH (08:12)
[2019-02-10 08:13] VITALS: BP 120/63
[2019-02-10] MEDS: METOPROLOL TART IMMED RELEASE 25 MG TABLET. PO SCH (08:13)
[2019-02-10] MEDS: CLOPIDOGREL BISULFATE 75 MG TABLET PO SCH (08:13)
[2019-02-10] MEDS: traMADol 50 MG TABLET PO PRN (08:14)
[2019-02-10] MEDS: INSULIN LISPRO 300 UNITS/3 ML INSULN.PEN. SQ SCH (08:20)
[2019-02-10 08:21] LABS: CALCIUM 8.6 mg/dL (8.5-10.1); MAGNESIUM 2.6 mg/dL (1.8-2.4); POTASSIUM 4.2 mmol/L (3.5-5.1)
[2019-02-10] MEDS ORDERED: LACT1CAP19 PO (10:27)
[2019-02-10] MEDS ORDERED: guaiFENesin/CODEINE 100mg/10mg PO (10:27)
[2019-02-10] MEDS ORDERED: PRED50TA PO (10:27)
[2019-02-10] MEDS ORDERED: CYCL10TA2 PO (10:27)
[2019-02-10] MEDS ORDERED: CELE100C PO (10:27)
--- NOTE | 2019-02-10 11:25 | PDOC3 ---
Discharge Summary Visit Information Date of Admission: Feb 08, 2019 Date of Discharge: Feb 10, 2019 Admitting Diagnosis Comment: 1. Community-acquired pneumonia. 2. Acute exacerbation of chronic obstructive pulmonary disease secondary to the above. 3. Mildly elevated troponin, most likely type 2 non-ST elevation myocardial infarction secondary to demand ischemia from the above infectious process. 4. History of coronary artery disease, status post coronary artery bypass graft on his last PCI. The patient was recommended medical therapy. No amenable lesions for stents. 5. History of hypertension. 6. History of dyslipidemia. Final Diagnosis Problems Medical Problems: (1) Leukocytosis Status: Acute (2) NSTEMI (non-ST elevated myocardial infarction) type 2 Status: Acute (3) Right lower lobe pneumonia Status: Acute (4) Shortness of breath Status: Acute Brief Hospital Course Allergies Allergies Coded Allergies Type Severity Reaction Last Updated Verified No Known Drug Allergies 05/22/14 No Vital Signs Vital Signs Date Time Temp Pulse Resp B/P (MAP) Pulse Ox O2 Delivery O2 Flow Rate FiO2 02/10/19 09:52 94 Nasal Cannula 1.0 02/10/19 08:14 18 02/10/19 08:13 103 120/63 02/10/19 07:00 98.4 98.4 Lab Results Laboratory Tests Test 02/08/19 13:00 02/08/19 15:55 02/08/19 20:36 02/09/19 04:00 Troponin I Quantitative 0.074 ng/mL (0.000-0.055) 0.065 ng/mL (0.000-0.055) Glucose (Fingerstick) 157 mg/dL (70-99) White Blood Count 20.7 x10^3/uL (4.0-11.0) Red Blood Count 4.57 x10^6/uL (4.30-5.70) Hemoglobin 12.6 g/dL (13.0-17.5) Hematocrit 38.7 % (39.0-53.0) Mean Corpuscular Volume 85 fL (79-100) Mean Corpuscular Hemoglobin 28 pg (25-35) Mean Corpuscular Hemoglobin Concent 33 g/dL (31-37) Red Cell Distribution Width 13.5 % (11.5-14.5) Platelet Count 254 x10^3/uL (140-400) Neutrophils (%) (Auto) 88 % (31-73) Lymphocytes (%) (Auto) 9 % (24-48) Monocytes (%) (Auto) 3 % (0-9) Eosinophils (%) (Auto) 0 % (0-3) Basophils (%) (Auto) 0 % (0-3) Neutrophils # (Auto) 18.3 x10^3uL (1.8-7.7) Lymphocytes # (Auto) 1.9 x10^3/uL (1.0-4.8) Monocytes # (Auto) 0.5 x10^3/uL (0.0-1.1) Eosinophils # (Auto) 0.0 x10^3/uL (0.0-0.7) Basophils # (Auto) 0.0 x10^3/uL (0.0-0.2) Sodium Level 136 mmol/L (136-145) Potassium Level 3.9 mmol/L (3.5-5.1) Chloride Level 99 mmol/L (98-107) Carbon Dioxide Level 25 mmol/L (21-32) Anion Gap 12 (6-14) Blood Urea Nitrogen 23 mg/dL (8-26) Creatinine 0.9 mg/dL (0.7-1.3) Estimated GFR (Cockcroft-Gault) 82.5 Glucose Level 181 mg/dL (70-99) Calcium Level 8.8 mg/dL (8.5-10.1) Magnesium Level 2.5 mg/dL (1.8-2.4) Test 02/09/19 07:19 02/09/19 11:22 02/09/19 16:22 02/09/19 17:20 Glucose (Fingerstick) 185 mg/dL (70-99) 178 mg/dL (70-99) 172 mg/dL (70-99) Urine Collection Type Unknown Urine Color Yellow Urine Clarity Clear Urine pH 6.0 Urine Specific [place] 1.015 Urine Protein Negative mg/dL (NEG-TRACE) Urine Glucose (UA) Negative mg/dL (NEG) Urine Ketones (Stick) Negative mg/dL (NEG) Urine Blood Negative (NEG) Urine Nitrite Negative (NEG) Urine Bilirubin Negative (NEG) Urine Urobilinogen Dipstick 0.2 mg/dL (0.2 mg/dL) Urine Leukocyte Esterase Negative (NEG) Urine RBC 0 /HPF (0-2) Urine WBC 0 /HPF (0-4) Urine Bacteria 0 /HPF (0-FEW) Urine Opiates Screen Pos (NEG) Urine Methadone Screen Neg (NEG) Urine Barbiturates Neg (NEG) Urine Phencyclidine Screen Neg (NEG) Urine Amphetamine/Methamphetamine Neg (NEG) Urine Benzodiazepines Screen Neg (NEG) Urine Cocaine Screen Neg (NEG) Urine Cannabinoids Screen Neg (NEG) Urine Ethyl Alcohol Neg (NEG) Test 02/09/19 20:48 02/10/19 07:35 02/10/19 08:09 Glucose (Fingerstick) 145 mg/dL (70-99) 152 mg/dL (70-99) White Blood Count 22.5 x10^3/uL (4.0-11.0) Red Blood Count 4.50 x10^6/uL (4.30-5.70) Hemoglobin 12.4 g/dL (13.0-17.5) Hematocrit 38.1 % (39.0-53.0) Mean Corpuscular Volume 85 fL (79-100) Mean Corpuscular Hemoglobin 28 pg (25-35) Mean Corpuscular Hemoglobin Concent 33 g/dL (31-37) Red Cell Distribution Width 14.1 % (11.5-14.5) Platelet Count 285 x10^3/uL (140-400) Neutrophils (%) (Auto) 89 % (31-73) Lymphocytes (%) (Auto) 6 % (24-48) Monocytes (%) (Auto) 5 % (0-9) Eosinophils (%) (Auto) 0 % (0-3) Basophils (%) (Auto) 0 % (0-3) Neutrophils # (Auto) 20.1 x10^3uL (1.8-7.7) Lymphocytes # (Auto) 1.3 x10^3/uL (1.0-4.8) Monocytes # (Auto) 1.1 x10^3/uL (0.0-1.1) Eosinophils # (Auto) 0.0 x10^3/uL (0.0-0.7) Basophils # (Auto) 0.0 x10^3/uL (0.0-0.2) Sodium Level 137 mmol/L (136-145) Potassium Level 4.2 mmol/L (3.5-5.1) Chloride Level 101 mmol/L (98-107) Carbon Dioxide Level 26 mmol/L (21-32) Anion Gap 10 (6-14) Blood Urea Nitrogen 36 mg/dL (8-26) Creatinine 1.0 mg/dL (0.7-1.3) Estimated GFR (Cockcroft-Gault) 73.0 Glucose Level 167 mg/dL (70-99) Calcium Level 8.6 mg/dL (8.5-10.1) Magnesium Level 2.6 mg/dL (1.8-2.4) Laboratory Tests Test 02/09/19 11:22 02/09/19 16:22 02/09/19 17:20 02/09/19 20:48 Glucose (Fingerstick) 178 mg/dL (70-99) 172 mg/dL (70-99) 145 mg/dL (70-99) Urine Collection Type Unknown Urine Color Yellow Urine Clarity Clear Urine pH 6.0 Urine Specific [place] 1.015 Urine Protein Negative mg/dL (NEG-TRACE) Urine Glucose (UA) Negative mg/dL (NEG) Urine Ketones (Stick) Negative mg/dL (NEG) Urine Blood Negative (NEG) Urine Nitrite Negative (NEG) Urine Bilirubin Negative (NEG) Urine Urobilinogen Dipstick 0.2 mg/dL (0.2 mg/dL) Urine Leukocyte Esterase Negative (NEG) Urine RBC 0 /HPF (0-2) Urine WBC 0 /HPF (0-4) Urine Bacteria 0 /HPF (0-FEW) Urine Opiates Screen Pos (NEG) Urine Methadone Screen Neg (NEG) Urine Barbiturates Neg (NEG) Urine Phencyclidine Screen Neg (NEG) Urine Amphetamine/Methamphetamine Neg (NEG) Urine Benzodiazepines Screen Neg (NEG) Urine Cocaine Screen Neg (NEG) Urine Cannabinoids Screen Neg (NEG) Urine Ethyl Alcohol Neg (NEG) Test 02/10/19 07:35 02/10/19 08:09 White Blood Count 22.5 x10^3/uL (4.0-11.0) Red Blood Count 4.50 x10^6/uL (4.30-5.70) Hemoglobin 12.4 g/dL (13.0-17.5) Hematocrit 38.1 % (39.0-53.0) Mean Corpuscular Volume 85 fL (79-100) Mean Corpuscular Hemoglobin 28 pg (25-35) Mean Corpuscular Hemoglobin Concent 33 g/dL (31-37) Red Cell Distribution Width 14.1 % (11.5-14.5) Platelet Count 285 x10^3/uL (140-400) Neutrophils (%) (Auto) 89 % (31-73) Lymphocytes (%) (Auto) 6 % (24-48) Monocytes (%) (Auto) 5 % (0-9) Eosinophils (%) (Auto) 0 % (0-3) Basophils (%) (Auto) 0 % (0-3) Neutrophils # (Auto) 20.1 x10^3uL (1.8-7.7) Lymphocytes # (Auto) 1.3 x10^3/uL (1.0-4.8) Monocytes # (Auto) 1.1 x10^3/uL (0.0-1.1) Eosinophils # (Auto) 0.0 x10^3/uL (0.0-0.7) Basophils # (Auto) 0.0 x10^3/uL (0.0-0.2) Sodium Level 137 mmol/L (136-145) Potassium Level 4.2 mmol/L (3.5-5.1) Chloride Level 101 mmol/L (98-107) Carbon Dioxide Level 26 mmol/L (21-32) Anion Gap 10 (6-14) Blood Urea Nitrogen 36 mg/dL (8-26) Creatinine 1.0 mg/dL (0.7-1.3) Estimated GFR (Cockcroft-Gault) 73.0 Glucose Level 167 mg/dL (70-99) Calcium Level 8.6 mg/dL (8.5-10.1) Magnesium Level 2.6 mg/dL (1.8-2.4) Glucose (Fingerstick) 152 mg/dL (70-99) Brief Hospital Course Mr. Macias is a 73 old with multiple medical comorbidities who presented with shortness of breath. Patient had cough and production of sputum. Fever and diagnosed with right lower lobe pneumonia. He had a mild elevation of troponin as a result of demand ischemia. Patient was seen by cardiology no changes to his medications were made, he recovered quite well and was deemed appropriate for discharge to complete his course of antibiotics at home with Levofloxacin, he was given steroids and muscle relaxant and nsaid due to the pleuritic chest discomfort. Patient did not have complications and was in good spiritssigns and symptoms of alarm discussed prior to discharge, encouraged to follow up with primary care physician in one week. Gen.: well-developed well-nourished in no apparent distress Head: Normal shape atraumatic Eyes: Pupils equal reactive to light and accommodation, normal conjunctivae and lids Ears: Normal shape Nose: Normal shape no trauma Mouth: No exudates of the back of throat no thrush no lesions Neck: Supple no JVD no carotid bruit or lymphadenopathy no thyromegaly Chest: Lungs clear to auscultation with good inspiratory effort mild rales over the right lower lung field greatly improved from admission Cardiovascular: S1-S2 regular rhythm no murmurs gallops or rubs Abdomen: Bowel sounds present soft nontender no hepatosplenomegaly appreciated sign Extremities: No clubbing no cyanosis no edema peripheral pulses palpated bilaterally Neurological: Alert awake oriented in person time place and situation, cranial nerves II through XII intact, no motor or sensory deficits appreciated Psych: Appropriate mood, cooperative Discharge Information Condition at Discharge: Improved Follow Up: Weeks Disposition/Orders: D/C to Home Scheduled Albuterol Sulfate (Ventolin Hfa Inhaler) 18 Gm Hfa.aer.ad, 2 PUFF INH Q4HRS for FOR ASTHMA, Ref 0 (Reported) Entered as Reported by: FRANCY CANO on 02/08/191452 Last Action: Converted on 02/08/191456 by YUKI PICHARDO MD Amlodipine Besylate (Amlodipine Besylate) 5 Mg Tablet, 10 MG PO DAILY, (Reported ) Entered as Reported by: BRENNA GOMEZ on 05/22/14 0903 Last Action: Continued on 02/08/19 1134 by YUKI PICHARDO MD Aspirin (Aspirin) 81 Mg Tab.chew, 81 MG PO DAILY for heart health, (Reported) Entered as Reported by: FRANCY CANO on 02/08/191452 Last Action: Continued on 02/08/191456 by YUKI PICHARDO MD Celecoxib (Celebrex) 100 Mg Capsule, 100 MG PO BID for pain for 10 Days, #20 Prescribed by: YUKI PICHARDO MD on 02/10/19 1027 Cholecalciferol (Vitamin D3) (Vitamin D3) 1,000 Unit Tablet, 1 TAB PO DAILY, # 30 Ref 5 (Reported) Entered as Reported by: IMMANUEL MIKE on 12/10/172225 Last Action: Continued on 02/08/191133 by YUKI PICHARDO MD Clopidogrel Bisulfate (Plavix) 75 Mg Tablet, 1 TAB PO DAILY, #90 Ref 1 (Reported ) Entered as Reported by: Taylor Beltran on 08/17/14 1527 Last Action: Continued on 02/08/191133 by YUKI PICHARDO MD Lactobacillus Rhamnosus Gg (Culturelle) 1 Each Cap.sprink, 1 CAP PO BID for probiotic for 14 Days, #28 Prescribed by: YUKI PICHARDO MD on 02/10/19 1027 Lisinopril/Hydrochlorothiazide (Lisinopril-Hctz 20-25 Mg Tab) 1 Each Tablet, 1 TAB PO DAILY, #30 Ref 5 (Reported) Entered as Reported by: IMMANUEL MIKE on 12/10/172225 Last Action: Converted on 02/08/191133 by YUKI PICHARDO MD Metformin Hcl (Metformin Hcl) 500 Mg Tablet, 500 MG PO DAILY for ANTI-DIABETIC, Ref 0 (Reported) Entered as Reported by: FRANCY CANO on 02/08/191452 Last Action: HELD on 02/08/191455 by YUKI PICHARDO MD Metoprolol Tartrate (Metoprolol Tartrate) 25 Mg Tablet, 25 MG PO BID for FOR HYPERTENSION, #60 Ref 0 (Reported) Entered as Reported by: BRENNA GOMEZ on 05/22/14 0903 Last Action: Continued on 02/08/191133 by YUKI PICHARDO MD Prednisone (Prednisone) 50 Mg Tablet, 1 TAB PO DAILY for copd for 3 Days, #3 Prescribed by: YUKI PICHARDO MD on 02/10/19 1027 Rosuvastatin Calcium (Crestor) 10 Mg Tablet, 10 MG PO HS for cholesterol, #30 Ref 0 (Reported) Entered as Reported by: FRANCY CANO on 02/08/191452 Last Action: Converted on 02/08/191456 by YUKI PICHARDO MD Tamsulosin Hcl (Flomax) 0.4 Mg Cap.er.24h, 0.4 MG PO HS for prostate, (Reported) Entered as Reported by: FRANCY CANO on 02/08/191452 Last Action: Continued on 02/08/191456 by YUKI PICHARDO MD [guaiFENesin/CODEINE 100mg/10mg] 5 ML LIQUID, 5 ML PO HS for Cough for 10 Days, #50 Prescribed by: YUKI PICHARDO MD on 02/10/19 1027 Scheduled PRN Cyclobenzaprine Hcl (Cyclobenzaprine Hcl) 10 Mg Tablet, 10 MG PO PRN Q8HRS PRN for MUSCLE SPASMS for 10 Days, #30 Prescribed by: YUKI PICHARDO MD on 02/10/19 1027 Nitroglycerin (Nitrostat) 0.4 Mg Tab.subl, 0.4 MG SL PRN Q5MIN PRN for CHEST PAIN, (Reported) Entered as Reported by: FRANCY CANO on 02/08/191452 Last Action: Continued on 02/08/191456 by YUKI PICHARDO MD Discontinued Medications Azithromycin (Zithromax) 250 Mg Tablet, 1 PKG PO UD, #6 Take 2 tablets on day 1 and then 1 tablet each day for the next 4 days as directed Prescribed by: HEIKE LAW D.O. on 02/02/19205 Last Action: HELD on 02/08/191455 by YUKI PICHARDO MD Levofloxacin (Levaquin) 750 Mg Tablet, 750 MG PO QHS for 7 Days, #7 Prescribed by: CASSANDRA COOPER MD on 04/30/18 1047 Last Action: HELD on 02/08/191455 by YUKI PICHARDO MD Prednisone (Prednisone) 20 Mg Tablet, 2 TAB PO DAILY, #8 Prescribed by: HEIKE LAW D.O. on 02/02/19205 Last Action: Continued on 02/08/191133 by MD KYLEE ALEX HECTOR M MD Feb 10, 2019 11:25
--- NOTE | 2019-02-10 11:49 | NUR ---
Discharge Note: ONEL ARREDONDO Discharge instructions and discharge home medications reviewed with Patient and a copy given. All questions have been answered and understanding verbalized. Instructions and handouts were given. Discontinued lines and drains. Patient discharged to home self care.
== END 2019-02-10 12:24 | disposition home or self-care (01) | DRG 280 ==
LOC: ER 09:25 → 2 NORTH 11:30
PROVIDERS: ADMIT Internal Medicine; ATTEND Internal Medicine
DX: I21.A1 Myocardial infarction type 2 (principal); J18.1 Lobar pneumonia, unspecified organism; J96.01 Acute respiratory failure with hypoxia; J44.1 Chronic obstructive pulmonary disease with (acute) exacerbation; J44.0 Chronic obstructive pulmonary disease with (acute) lower respiratory infection; I50.32 Chronic diastolic (congestive) heart failure; I11.0 Hypertensive heart disease with heart failure; E11.9 Type 2 diabetes mellitus without complications; I25.5 Ischemic cardiomyopathy; I25.10 Atherosclerotic heart disease of native coronary artery without angina pectoris; E78.00 Pure hypercholesterolemia, unspecified; E78.5 Hyperlipidemia, unspecified; M19.90 Unspecified osteoarthritis, unspecified site; E83.42 Hypomagnesemia; Z95.1 Presence of aortocoronary bypass graft; I25.2 Old myocardial infarction; Z86.73 Personal history of transient ischemic attack (TIA), and cerebral infarction without residual deficits; Z82.49 Family history of ischemic heart disease and other diseases of the circulatory system; Z87.891 Personal history of nicotine dependence
CPT/HCPCS: 36415; 71045; 80048; 80053; 80061; 80307; 81001; 82553; 82962; 83605; 83690; 83735; 83880; 84443; 84484; 85007; 85025; 87040; 87449; 93005; 93306; 94640; 94667; 94668; 94760; 96365; 96375; J0456; J0696; J1815; J1940; J1956; J2270; J2920; J2930; J3475; J7512; J7620; 99285-25